=== PATIENT | female | born 1935 | race Caucasian/White ===

== ENCOUNTER 2020-07-16 15:13 | Emergency (ER) | payer MEDICARE, SELFPAY ==
[2020-07-16 15:40] VITALS: BP 140/80; BP 89/34; PULSE 62; PULSE 65; RESP 16; TEMP 36.7; O2SAT 89; O2SAT 95; BMI 40.1
[2020-07-16 15:52] VITALS: BP 109/45; PULSE 66
--- NOTE | 2020-07-16 17:12 | ECG_ITS ---
Test Reason : OVERDOSE Blood Pressure : / mmHG Vent. Rate : 080 BPM Atrial Rate : 080 BPM P-R Int : 174 ms QRS Dur : 064 ms QT Int : 376 ms P-R-T Axes : 002 -07 003 degrees QTc Int : 433 ms Normal sinus rhythm Normal ECG When compared with ECG of 22-NOV-2019 18:33, Premature atrial complexes are no longer Present Vent. rate has decreased BY 45 BPM Referred By: Dalton Munoz Electronically Signed By:FLORECITA TABARES MD
--- NOTE | 2020-07-16 17:13 | XR_ITS ---
EXAMINATION: XR CHEST CLINICAL INFORMATION: Overdose COMPARISON: None TECHNIQUE: Frontal view of the chest was obtained. FINDINGS: No significant abnormality is noted involving the heart, lungs, mediastinum, bony thorax or soft tissues. Bibasilar atelectasis is present. XR/XR chest 1V IMPRESSION: No acute intrathoracic disease.
[2020-07-16 18:13] VITALS: BP 127/55; PULSE 81; RESP 16; O2SAT 95
[2020-07-16 18:18] LABS: MANUAL DIFF FLAG NO
[2020-07-16 18:19] LABS: Basophils Percent Auto 0.5 % (0-2); Eosinophils Absolute Auto 0.1 X10*3/uL (0.0-0.4); Eosinophils Percent Auto 1.2 % (0-4); Hematocrit 26.6 % (37-47); Hemoglobin 7.7 g/dl (12.0-16.0); Imm Gran Abs Auto 0.02 X10*3/uL (0.00-0.03); Imm Gran Pct Auto 0.3 % (0.0-0.4); Lymphocytes Absolute Auto 1.1 X10*3/uL (1.2-4.9); Lymphocytes Percent Auto 14.6 % (20-40); Mean Corpuscular HGB Conc 28.9 g/dl (31.0-35.0); Mean Corpuscular Hemoglobin 23.8 pg (27.0-33.0); Mean Corpuscular Volume 82.1 fL (80-98); Mean Platelet Volume 10.3 fL (9.4-12.3); Monocytes Absolute Auto 0.4 X10*3/uL (0.1-1.2); Monocytes Percent Auto 5.4 % (2-11); Neutrophils Absolute Auto 5.9 X10*3/uL (2.0-8.3); Platelet Count 334 X10*3/uL (160-400); Red Blood Count 3.24 X10*6/uL (4.20-5.50); Red Cell Distribution Width 15.9 % (11.0-16.0); White Blood Count 7.6 X10*3/uL (4.8-10.8)
[2020-07-16 18:26] LABS: Prothrombin Time 12.2 SEC (10.8-13.0)
[2020-07-16 18:29] LABS: Partial Thromboplastin Time 28.4 SEC (24.1-38.0)
[2020-07-16 18:44] LABS: Ethanol < 10 mg/dL
[2020-07-16 18:46] LABS: Alanine Aminotransferase 14 U/L (0-31); Albumin Level 3.6 g/dL (3.5-5.0); Alkaline Phosphatase 56 U/L (39-117); Anion Gap 20 (12-20); Aspartate Amino Transferase 28 U/L (5-31); Bilirubin Total 0.4 mg/dL (0.0-1.0); Blood Urea Nitrogen 40 mg/dL (9-16); Calcium 8.7 mg/dL (8.4-10.2); Carbon Dioxide 20 mmol/L (22-29); Chloride 105 mmol/L (96-108); Estimated Glomerular Filt Rate 23; Glucose Random 153 mg/dL (60-115); Potassium 5.5 mmol/l (3.3-5.1); Sodium 139 mmol/L (135-145); Total Protein 6.8 g/dL (6.5-8.0)
[2020-07-16 18:54] LABS: Troponin-I High Sensitivity 8.4 ng/L (<3.5-17.0)
--- NOTE | 2020-07-16 19:07 | PC.NURSE ---
pt resting in stretcher in NAD. Pt alert, respirations easy, n/l. skin w/d. pt denies any complaints. pt awaiting for dispo.
--- NOTE | 2020-07-16 19:10 | PC.NURSE ---
pt requesting to go home.
--- NOTE | 2020-07-16 19:55 | ED.OVERDOSE ---
HPI - Overdose General Chief Complaint: Overdose Stated Complaint: AMS S/P DOUBLE INTAKE OF EDIBLES Time Seen by Provider: 07/16/20 17:12 Source: EMS Limitations: no limitations History of Present Illness HPI Narrative: This 20-year-old female with blood noted past medical history including history of chronic right shoulder pain, recurrent falls along with other history as noted below presents via EMS from home after she reportedly ingested to edible marijuana cookies and afterwards reportedly became unresponsive to the has been at home who called EMS and EMS found her to be responsive alert and oriented x3 but hypertensive. She upon arrival offers no complaints. States she feels fine and ingested the cookie to help with her chronic right shoulder pain which she told her friend about and suggested to the edible cookie. She otherwise denies any chest pain or shortness of breath. No fall. No head, neck, back, abdominal pain nausea vomiting or diarrhea. MD complaint: accidental overdose Timing confirmed by: spouse Intent: unwilling to say ( For shoulder pain) Associated symptoms: syncope (near ) Related Data Allergies Allergy/AdvReac Type Severity Reaction Status Date / Time zolpidem [Zolpidem] AdvReac Intermediate CONFUSION Verified 07/16/20 15:45 Review of Systems Review of Systems: Constitutional: No Weight loss, No Fever, No Chills, No Night Sweats, No Fatigue, No Malaise ENT/Mouth: No Hearing loss, No Ear Pain, No Nasal Congestion, No Sinus Pain, No Hoarseness, No sore throat, No Rhinorrhea, No Swallowing Difficulty Eyes: No Eye Pain, No Swelling, No Redness, No Foreign Body, No Discharge, No Vision Changes Cardiovascular: No Chest Pain, No SOB, No Dyspnea on Exertion, No Orthopnea, No Edema, No Palpitations Respiratory: No Cough, No Sputum, No Wheezing, No Smoke Exposure, No Dyspnea Gastrointestinal: No Nausea, No Vomiting, No Diarrhea, No Constipation, No abdominal Pain, No Hematochezia, No Melena Genitourinary: no irregular bleeding, No Dysuria, No Urinary Frequency, No Hematuria, No Urinary Incontinence, No Urgency, No Flank Pain, No Urinary Flow Changes, No Hesitancy Musculoskeletal: No joint pain, No Myalgias, No Joint Swelling Skin: No Skin Lesions, No rash Neuro: No Weakness, No Numbness, No Paresthesias, No Loss of Consciousness, No Dizziness, No Headache Psych: No Anxiety/Panic, No Depression, No SI/HI/AH/VH, No Social Issues Heme/Lymph: No Bruising, No Bleeding,No Lymphadenopathy Endocrine: No Polyuria, No Polydipsia, No Temperature Intolerance Yes all other systems are reviewed and are negative PENDING SALE TO [facility] Past Medical History Attestation statement: The following information was validated with the patient. Medical History Diabetes High cholesterol HTN (hypertension) Hypothyroid Social History Social History Smoking Status: Never smoker Use of substances other than those prescribed or required for medical reasons: No Advance Directives: No Advance Directives Information Provided: No Physical Exam Vital Signs: Vital Signs: Vital Signs Temp Pulse Resp BP Pulse Ox 07/16/20 18:13 81 16 127/55 L 95 07/16/20 15:52 66 109/45 L 07/16/20 15:40 98.0 F 65 16 89/34 L 95 Body Mass Index 40.1 Reviewed Const: General: cooperative and healthy appearing; No acute distress or intoxicated appearing Nutritional Appearance: average body habitus Orientation/consciousness: oriented to person, oriented to place and oriented to time HENMT: Head: Yes normal to inspection Ears: hearing grossly normal bilaterally Eyes: General: appearance normal, both eyes and all related structures Visual Gonzalez: normal visual gonzalez by confrontation Neck: Neck: Yes normal visual inspection, No positive Brudzinski's sign, No positive Kernig's sign and No tender Thyroid: Thyroid normal Chest: Chest palpation & inspection: normal inspection of the chest Resp: Effort & Inspection: normal respiratory effort Cardio: Jugular venous distension: no JVD GI: Inspection: Yes normal to inspection Percussion: Yes normal to percussion Auscultation: normal bowel sounds : General: Yes no CVA tenderness Back/Spine/Pelvis: Back: no CVA tenderness Skin: General skin exam: no rashes or lesions noted Neuro: General: oriented to person, oriented to place, oriented to time, gait normal, moves all extremities and Normal light touch and pain sensation Cranial nerves: Yes CN's II-XII intact bilaterally Cognition (Neuro): normal cognition Gait exam (Neuro): Normal gait present Motor exam (neuro): 5/5 motor strength present throughout Sensory Exam: Normal double simultaneous stimulation for sensation Coordination: [id number] test normal Extrem: General: Yes normal to inspection Course Course Course Narrative: Throughout her care she has been very resistant initially requiring some convincing given her comorbidities to have labs done after having near syncopal episode an 84-year-old female. She is alert and oriented x3 does not seem intoxicated she has hemodynamically remained stable. Workup shows significant anemia compared to prior as well as AYE we did get some IV fluids here recommendation for further investigation into the anemia and admission for AYE however she does not want this. I did talk to her daughter Shellie who states that mother cannot be convinced and she will help her follow-up with her primary care doctor. She will be signed out against medical advice for admission for further evaluation and treatment. Risks of signing out AMA reviewed welcome to return. MDM - Overdose MDM Narrative Medical decision making narrative: in review 84-year-old female with above history presenting with near syncopal episode after ingesting edible marijuana cookie. She on arrival offers no medical complaints. Did have hypertension per EMS normotensive upon arrival. She offers no complaints. Given her age and comorbidities will go ahead and initiate medical workup including cardiac enzymes EKG chest x-ray and labs. Initially resistant but now agreeable to labs. She does live at home with her she does use walker/cane sometimes and she reports she takes care of her and daughter lives close by. Lab Data Result diagrams: 07/16/20 18:11 07/16/20 18:11 Labs: Lab Results 07/16/20 07/16/20 07/16/20 Range/Units 18:11 18:11 18:11 WBC 7.6 (4.8-10.8) X10*3/uL RBC 3.24 L (4.20-5.50) X10*6/uL Hgb 7.7 L (12.0-16.0) g/dl Hct 26.6 L (37-47) % MCV 82.1 (80-98) fL MCH 23.8 L (27.0-33.0) pg MCHC 28.9 L (31.0-35.0) g/dl RDW 15.9 (11.0-16.0) % Plt Count 334 (160-400) X10*3/uL MPV 10.3 (9.4-12.3) fL Immature Gran % (Auto) 0.3 (0.0-0.4) % Neut % (Auto) 78.0 H (45-73) % Lymph % (Auto) 14.6 L (20-40) % [place] % (Auto) 5.4 (2-11) % Eos % (Auto) 1.2 (0-4) % Baso % (Auto) 0.5 (0-2) % Lymph # (Auto) 1.1 L (1.2-4.9) X10*3/uL [place] # (Auto) 0.4 (0.1-1.2) X10*3/uL Eos # (Auto) 0.1 (0.0-0.4) X10*3/uL Baso # (Auto) 0.0 (0.0-0.2) X10*3/uL Abs Immat Gran (auto) 0.02 (0.00-0.03) X10*3/uL Absolute Neuts (auto) 5.9 (2.0-8.3) X10*3/uL Absolute Nucleated RBC 0.000 (0.0-0.012) X10*3/uL Nucleated RBC % (auto) 0.0 (0.0-0.2) /100WBC PT 12.2 (10.8-13.0) SEC INR 1.0 (0.9-1.1) APTT 28.4 (24.1-38.0) SEC Sodium 139 (135-145) mmol/L Potassium 5.5 H (3.3-5.1) mmol/l Chloride 105 (96-108) mmol/L Carbon Dioxide 20 L (22-29) mmol/L Anion Gap 20 (12-20) BUN 40 H (9-16) mg/dL Creatinine 2.04 H (0.5-1.4) mg/dL Estim Creat Clear Calc 27.0 Estimated GFR 23 Random Glucose 153 H (60-115) mg/dL Calcium 8.7 (8.4-10.2) mg/dL Total Bilirubin 0.4 (0.0-1.0) mg/dL AST 28 (5-31) U/L ALT 14 (0-31) U/L Alkaline Phosphatase 56 (39-117) U/L Troponin I High Sens (<3.5-17.0) ng/L Total Protein 6.8 (6.5-8.0) g/dL Albumin 3.6 (3.5-5.0) g/dL Ethyl Alcohol mg/dL 07/16/20 07/16/20 Range/Units 18:11 18:11 WBC (4.8-10.8) X10*3/uL RBC (4.20-5.50) X10*6/uL Hgb (12.0-16.0) g/dl Hct (37-47) % MCV (80-98) fL MCH (27.0-33.0) pg MCHC (31.0-35.0) g/dl RDW (11.0-16.0) % Plt Count (160-400) X10*3/uL MPV (9.4-12.3) fL Immature Gran % (Auto) (0.0-0.4) % Neut % (Auto) (45-73) % Lymph % (Auto) (20-40) % [place] % (Auto) (2-11) % Eos % (Auto) (0-4) % Baso % (Auto) (0-2) % Lymph # (Auto) (1.2-4.9) X10*3/uL [place] # (Auto) (0.1-1.2) X10*3/uL Eos # (Auto) (0.0-0.4) X10*3/uL Baso # (Auto) (0.0-0.2) X10*3/uL Abs Immat Gran (auto) (0.00-0.03) X10*3/uL Absolute Neuts (auto) (2.0-8.3) X10*3/uL Absolute Nucleated RBC (0.0-0.012) X10*3/uL Nucleated RBC % (auto) (0.0-0.2) /100WBC PT (10.8-13.0) SEC INR (0.9-1.1) APTT (24.1-38.0) SEC Sodium (135-145) mmol/L Potassium (3.3-5.1) mmol/l Chloride (96-108) mmol/L Carbon Dioxide (22-29) mmol/L Anion Gap (12-20) BUN (9-16) mg/dL Creatinine (0.5-1.4) mg/dL Estim Creat Clear Calc Estimated GFR Random Glucose (60-115) mg/dL Calcium (8.4-10.2) mg/dL Total Bilirubin (0.0-1.0) mg/dL AST (5-31) U/L ALT (0-31) U/L Alkaline Phosphatase (39-117) U/L Troponin I High Sens 8.4 (<3.5-17.0) ng/L Total Protein (6.5-8.0) g/dL Albumin (3.5-5.0) g/dL Ethyl Alcohol < 10 mg/dL Discharge Plan Discharge Clinical Impression: AYE (acute kidney injury), Anemia Drug overdose Qualifiers: Encounter type: initial encounter Injury intent: accidental or unintentional Qualified Code(s): T50.901A - Poisoning by unspecified drugs, medicaments and biological substances, accidental (unintentional), initial encounter Patient Disposition: Home, Self-Care Instructions: Dehydration (ED), Acute Kidney Injury (DC), Anemia (ED) Referrals: Jas Rangel PA-C [Primary Care Provider] - 1 day Stand Alone Forms: Against Medical Advice Interventions: ED Discharge Assessment Last Done: 07/16/20 20:46 Discharge Date/Time: 07/16/20 20:49
--- NOTE | 2020-07-16 19:59 | PC.NURSE ---
PA IN ROOM FOR RE-EVAL. PT REQUESTING TO GO HOME PT STATES YOU HAVE IGNORED ME ALL DAY AND JUST LEFT ME HERE, I NEED TO GO HOME MY IS DIABETIC PT APPEARS ANXIOUS AND STATES I CANT STAY PA REQUESTING OBS AND PT REFUSING OBS AND STATES I KNOW IM ANEMIC AND DEHYDRATED AND I WILL EAT AND DRINK WHEN I GET HOME . PT REMAINS ALERT, RESPIRATIONS EASY, N/L. PT GIVEN PHONE TO CALL DAUGHTERSARAH [phone].
== END 2020-07-16 20:49 | disposition home or self-care (01) ==
PROVIDERS: Nurse Practitioner Primary Care; Emergency Provider Internal Medicine; PCP Physician Assistant
DX: T40.7X1A Poisoning by cannabis (derivatives), accidental (unintentional), initial encounter (principal); Y92.009 Unspecified place in unspecified non-institutional (private) residence as the place of occurrence of the external cause; N17.9 Acute kidney failure, unspecified; Z79.899 Other long term (current) drug therapy
CPT/HCPCS: 36415; 71045; 80053; 80320; 84484; 85025; 85610; 85730; 93005; 96374; 99284; 99285; J2405

== ENCOUNTER 2020-09-15 14:51 | Outpatient (REF) | payer MEDICARE, SELFPAY ==
--- NOTE | 2020-09-15 15:01 | XR_ITS ---
EXAMINATION: XR CERVICAL SPINE CLINICAL INFORMATION: Neck pain, evaluate for degenerative changes. COMPARISON: None TECHNIQUE: 6 views of the cervical spine, inclusive of flexion and extension views, were obtained. Positioning in the lateral projection is limited. The C6 and C7 vertebral bodies are incompletely visualized. FINDINGS: Mild cervicothoracic levoscoliosis is seen with apex at T1-T2. There is normal cervical lordosis and spinal alignment. Generalized osteopenia is seen. Mild to moderate multilevel degenerative disc disease and bilateral facet arthropathy seen most pronounced from C4-C5 to C6-C7. The vertebral bodies are intact. Mild bilateral neural foraminal narrowing is seen at C4-C5 and C5-C6. The prevertebral soft tissues are unremarkable. XR/XR cervical spine min 6V IMPRESSION: 1. Mild cervicothoracic levoscoliosis. 2. Mild to moderate multilevel degenerative changes including mild bilateral neural foraminal narrowing as detailed above.
== END 2020-09-15 14:52 | disposition home or self-care (01) ==
LOC: HO.XRAY 14:51
PROVIDERS: PCP Physician Assistant; Visit Provider Physical Medicine & Rehabilitation
DX: M54.2 Cervicalgia (principal)
CPT/HCPCS: 72052

== ENCOUNTER 2020-09-25 10:46 | Outpatient (REF) | payer MEDICARE, SELFPAY ==
[2020-09-25 13:53] LABS: MANUAL DIFF FLAG NO
[2020-09-25 14:02] LABS: Basophils Percent Auto 0.4 % (0-2); Eosinophils Absolute Auto 0.2 X10*3/uL (0.0-0.4); Eosinophils Percent Auto 2.8 % (0-4); Hemoglobin 8.7 g/dl (12.0-16.0); Imm Gran Abs Auto 0.02 X10*3/uL (0.00-0.03); Imm Gran Pct Auto 0.3 % (0.0-0.4); Lymphocytes Absolute Auto 1.3 X10*3/uL (1.2-4.9); Lymphocytes Percent Auto 16.6 % (20-40); Mean Corpuscular Hemoglobin 25.9 pg (27.0-33.0); Mean Corpuscular Volume 89.3 fL (80-98); Mean Platelet Volume 11.3 fL (9.4-12.3); Monocytes Absolute Auto 0.6 X10*3/uL (0.1-1.2); Monocytes Percent Auto 7.5 % (2-11); NRBC Pct Auto 0.3 /100WBC (0.0-0.2); Neutrophils Absolute Auto 5.7 X10*3/uL (2.0-8.3); Neutrophils Percent Auto 72.4 % (45-73); Platelet Count 314 X10*3/uL (160-400); Red Blood Count 3.36 X10*6/uL (4.20-5.50); Red Cell Distribution Width 18.9 % (11.0-16.0); White Blood Count 7.9 X10*3/uL (4.8-10.8)
[2020-09-25 14:19] LABS: Iron 21 mcg/dL (30-160); Percent Iron Saturation 6 % (15-50); Total Iron Binding Capacity 364 mcg/dL (228-428); Unsaturated Iron Binding 343 ug/dL
[2020-09-25 14:27] LABS: Alanine Aminotransferase 17 U/L (0-31); Albumin Level 3.8 g/dL (3.5-5.0); Alkaline Phosphatase 73 U/L (39-117); Anion Gap 16 (12-20); Aspartate Amino Transferase 19 U/L (5-31); Bilirubin Total 0.3 mg/dL (0.0-1.0); Blood Urea Nitrogen 30 mg/dL (9-16); Calcium 9.5 mg/dL (8.4-10.2); Carbon Dioxide 25 mmol/L (22-29); Chloride 106 mmol/L (96-108); Cholesterol 149 mg/dL; Estimated Glomerular Filt Rate 41; Glucose Fasting 127 mg/dL (60-99); HDL Cholesterol 43 mg/dL; LDL Cholesterol Calculated 81 mg/dl; Potassium 4.4 mmol/l (3.3-5.1); Sodium 143 mmol/L (135-145); Total Protein 6.8 g/dL (6.5-8.0); Triglycerides 126 mg/dL
[2020-09-25 14:39] LABS: Ferritin 8 ng/mL (10-250)
[2020-09-25 14:44] LABS: Estimated Average Glucose 117 mg/dL; Hemoglobin A1c % 5.7 %
[2020-09-25 14:49] LABS: Thyroid Stimulating Hormone 2.91 uIU/mL (0.32-4.0)
== END 2020-09-25 10:47 | disposition home or self-care (01) ==
LOC: HO.10HDL 10:46
PROVIDERS: Visit Provider Physician Assistant
DX: D64.9 Anemia, unspecified (principal); E11.9 Type 2 diabetes mellitus without complications; I10 Essential (primary) hypertension; E03.9 Hypothyroidism, unspecified; E78.00 Pure hypercholesterolemia, unspecified
CPT/HCPCS: 36415; 80053; 80061; 82728; 83036; 83540; 84443; 85025

== ENCOUNTER → 2020-10-13 12:58 | Outpatient (BNVA) | payer MEDICARE, SELFPAY | PROVIDERS: PCP Physician Assistant; Visit Provider Orthopaedic Surgery | DX: M17.12 Unilateral primary osteoarthritis, left knee (principal) | CPT/HCPCS: 20610; 99212; J1040 ==

== ENCOUNTER → 2020-10-19 10:30 | Outpatient (BNVA) | payer MEDICARE, SELFPAY | PROVIDERS: PCP Physician Assistant; Visit Provider Anesthesiology | DX: B02.29 Other postherpetic nervous system involvement (principal) | CPT/HCPCS: 99202 ==

== ENCOUNTER → 2021-01-13 12:20 | Outpatient (BNVA) | payer MEDICARE, SELFPAY | PROVIDERS: PCP Physician Assistant; Visit Provider Orthopaedic Surgery | DX: M17.12 Unilateral primary osteoarthritis, left knee (principal) | CPT/HCPCS: 20610; 99212; J1040 ==

== ENCOUNTER 2021-02-09 09:19 | Outpatient (REF) | payer MEDICARE, SELFPAY ==
[2021-02-09 10:35] LABS: Hemoglobin 12.4 g/dl (12.0-16.0); Mean Corpuscular HGB Conc 31.8 g/dl (31.0-35.0); Mean Corpuscular Hemoglobin 28.6 pg (27.0-33.0); Mean Corpuscular Volume 90.1 fL (80-98); Mean Platelet Volume 10.8 fL (9.4-12.3); Platelet Count 229 X10*3/uL (160-400); Red Blood Count 4.33 X10*6/uL (4.20-5.50); Red Cell Distribution Width 15.9 % (11.0-16.0); White Blood Count 6.9 X10*3/uL (4.8-10.8)
[2021-02-09 10:52] LABS: Alanine Aminotransferase 13 U/L (0-31); Albumin Level 3.9 g/dL (3.5-5.0); Alkaline Phosphatase 66 U/L (39-117); Anion Gap 14 (12-20); Aspartate Amino Transferase 15 U/L (5-31); Bilirubin Total 0.8 mg/dL (0.0-1.0); Blood Urea Nitrogen 28 mg/dL (9-16); Calcium 9.9 mg/dL (8.4-10.2); Carbon Dioxide 24 mmol/L (22-29); Chloride 105 mmol/L (96-108); Cholesterol 151 mg/dL; Estimated Glomerular Filt Rate 40; Glucose Fasting 141 mg/dL (60-99); HDL Cholesterol 49 mg/dL; Iron 68 mcg/dL (30-160); LDL Cholesterol Calculated 79 mg/dl; Percent Iron Saturation 22 % (15-50); Potassium 4.3 mmol/L (3.3-5.1); Sodium 139 mmol/L (135-145); Total Iron Binding Capacity 305 mcg/dL (228-428); Total Protein 6.6 g/dL (6.5-8.0); Triglycerides 115 mg/dL; Unsaturated Iron Binding 237 ug/dL
== END 2021-02-09 09:20 | disposition home or self-care (01) ==
LOC: HO.10HDL 09:19
PROVIDERS: Visit Provider Physician Assistant
DX: D50.9 Iron deficiency anemia, unspecified (principal); I10 Essential (primary) hypertension
CPT/HCPCS: 36415; 80053; 80061; 83540; 85027

== ENCOUNTER → 2021-05-14 08:51 | Outpatient (BNVA) | payer MEDICARE, SELFPAY | PROVIDERS: PCP Physician Assistant; Visit Provider Orthopaedic Surgery | DX: M17.12 Unilateral primary osteoarthritis, left knee (principal); E11.9 Type 2 diabetes mellitus without complications; E78.00 Pure hypercholesterolemia, unspecified; I10 Essential (primary) hypertension; E03.9 Hypothyroidism, unspecified; Z87.891 Personal history of nicotine dependence; Z88.8 Allergy status to other drugs, medicaments and biological substances | CPT/HCPCS: 99212 ==

== ENCOUNTER → 2021-05-31 08:21 | Outpatient (BNVA) | payer MEDICARE, SELFPAY | PROVIDERS: PCP Physician Assistant; Visit Provider Physician Assistant | DX: M17.12 Unilateral primary osteoarthritis, left knee (principal) | CPT/HCPCS: 20610 ==

== ENCOUNTER → 2021-11-26 09:40 | Outpatient (BNVA) | payer MEDICARE, SELFPAY | PROVIDERS: PCP Physician Assistant; Visit Provider Physician Assistant | DX: M17.12 Unilateral primary osteoarthritis, left knee (principal) | CPT/HCPCS: 20610; J7326 ==

== ENCOUNTER 2022-02-10 08:49 | Outpatient (REF) | payer MEDICARE, SELFPAY ==
[2022-02-10 09:22] LABS: Hematocrit 39.2 % (37.0-47.0); Hemoglobin 12.4 g/dl (12.0-16.0); Mean Corpuscular HGB Conc 31.6 g/dl (31.0-35.0); Mean Corpuscular Hemoglobin 30.2 pg (27.0-33.0); Mean Corpuscular Volume 95.6 fL (80.0-98.0); Platelet Count 235 X10*3/uL (160-400); Red Cell Distribution Width 13.7 % (11.0-16.0); White Blood Count 6.4 X10*3/uL (4.8-10.8)
[2022-02-10 09:56] LABS: Alanine Aminotransferase 10 U/L (0-31); Alkaline Phosphatase 59 U/L (39-117); Anion Gap 14 (12-20); Aspartate Amino Transferase 14 U/L (5-31); Bilirubin Total 0.5 mg/dL (0.0-1.0); Blood Urea Nitrogen 40 mg/dL (9-16); Calcium 10.5 mg/dL (8.4-10.2); Carbon Dioxide 23 mmol/L (22-29); Chloride 109 mmol/L (96-108); Estimated Glomerular Filt Rate 32; Glucose Fasting 98 mg/dL (60-99); Iron 79 mcg/dL (30-160); Percent Iron Saturation 24 % (15-50); Potassium 4.8 mmol/L (3.3-5.1); Sodium 141 mmol/L (135-145); Total Iron Binding Capacity 327 mcg/dL (228-428); Unsaturated Iron Binding 248 ug/dL
[2022-02-10 10:18] LABS: TSH reflex Free T4 1.37 uIU/mL (0.32-4.0)
[2022-02-10 10:38] LABS: Creatinine Urine 89.22 mg/dL; Microalbum/Creatinine Ratio Ur 11.2 ug/mg cr
== END 2022-02-10 08:50 | disposition home or self-care (01) ==
LOC: HO.LAB 08:49
PROVIDERS: PCP Physician Assistant; Visit Provider Physician Assistant
DX: E11.9 Type 2 diabetes mellitus without complications (principal); I10 Essential (primary) hypertension; D50.9 Iron deficiency anemia, unspecified; E03.9 Hypothyroidism, unspecified
CPT/HCPCS: 36415; 80053; 82043; 83540; 84443; 85027

== ENCOUNTER → 2022-04-11 08:25 | Outpatient (BNVA) | payer MEDICARE, SELFPAY | PROVIDERS: PCP Physician Assistant; Visit Provider Physician Assistant | DX: M17.12 Unilateral primary osteoarthritis, left knee (principal) | CPT/HCPCS: 20610; 99212; J1020 ==

== ENCOUNTER → 2022-06-10 14:07 | Outpatient (BNVA) | payer MEDICARE, SELFPAY | PROVIDERS: PCP Physician Assistant; Visit Provider Physician Assistant | DX: M17.12 Unilateral primary osteoarthritis, left knee (principal) | CPT/HCPCS: 20610; J7326 ==

== ENCOUNTER → 2022-08-26 13:10 | Outpatient (BNVA) | payer MEDICARE, SELFPAY | PROVIDERS: PCP Physician Assistant; Visit Provider Physician Assistant | DX: M17.12 Unilateral primary osteoarthritis, left knee (principal) | CPT/HCPCS: 20610; 99212; J1040 ==

== ENCOUNTER → 2022-11-24 12:21 | Outpatient (BNVA) | payer MEDICARE, SELFPAY | PROVIDERS: PCP Physician Assistant; Visit Provider Physician Assistant | DX: M17.12 Unilateral primary osteoarthritis, left knee (principal) | CPT/HCPCS: 20610; 99212; J1040 ==

== ENCOUNTER 2023-02-22 08:15 | Outpatient (REF) | payer MEDICARE, SELFPAY ==
--- NOTE | ~2023-02-22 | XR_ITS ---
EXAMINATION: XR KNEE, LEFT CLINICAL INFORMATION: Pain in left knee COMPARISON: Same day AP knees standing TECHNIQUE: Lateral and sunrise views of the left knee. FINDINGS: Right knee: There is a total knee replacement. There is no fracture or evidence of loosening. The prosthesis appears in satisfactory appearance. Left knee: There is severe narrowing of all 3 joint compartments of the knee joint with marginal osteophyte formation with [id number] appearance of the medial joint compartment. There is no fracture. There is a small joint effusion. Vascular calcification is noted. XR/XR knee LT 2V IMPRESSION: 1. Total knee replacement without evidence of hardware complication of the right knee. 2. Severe osteoarthritis of the left knee.
--- NOTE | ~2023-02-22 | XR_ITS ---
EXAMINATION: XR KNEE AP STANDING CLINICAL INFORMATION: Pain in right knee COMPARISON: 2 views of the left knee same-day TECHNIQUE: AP standing view of both knees FINDINGS: Right knee: There is a total knee replacement. There is no fracture or evidence of loosening. The prosthesis appears in satisfactory appearance. Left knee: There is severe narrowing of all 3 joint compartments of the knee joint with marginal osteophyte formation with [id number] appearance of the medial joint compartment. There is no fracture. There is a small joint effusion. Vascular calcification is noted. XR/XR knee standing BI IMPRESSION: 1. Total knee replacement without evidence of hardware complication of the right knee. 2. Severe osteoarthritis of the left knee.
== END 2023-02-22 08:16 | disposition home or self-care (01) ==
LOC: HO.HOSX 08:15
PROVIDERS: Visit Provider Physician Assistant
DX: M17.12 Unilateral primary osteoarthritis, left knee (principal)
CPT/HCPCS: 20610; 73560; 73565; 99212; J1040

== ENCOUNTER 2023-04-10 09:17 | Outpatient (AMB) | payer MEDICARE, SELFPAY ==
--- NOTE | 2023-04-10 09:29 | A.OFFVIS_ITS ---
Intake Intake Visit Reasons: Discuss LT TKA Intake Note: Julia is an 89 year old female who presents today to discuss Left TKA. Seema has tried and failed multiple cortisone injections, viscosupplementation, OTC NSAIDS, home therapy and therapy. The most recent gel injection was helpful and has allowed her to walk better. Booked for Left TKA 05/30/23 has further questions' Allergies gabapentin Adverse Reaction (Intermediate, Verified 04/10/23 09:31) Confusion zolpidem [Zolpidem] Adverse Reaction (Intermediate, Verified 04/10/23 09:31) CONFUSION HPI Discuss LT TKA HPI Details Julia is an 87 year old Diabetic woman who presents with left knee OA, here to discuss TKA surgery. She is scheduled for surgery on 05/30/23, and says she has some more questions. She is accompanied by her daughter today. She has failed other conservative treatment options, though says her most recent injection has let her walk more easily with less pain. Her last steroid injection was on 02/22/23, and her recent viscosupplementation was done on 05/21/22, which she says gave her no relief. She complains of pain with daily activity, worse with walking or using stairs. She uses a walker to assist her, and a chairlift to go up and down stairs. She cares for her at home who is an amputee & is blind. Her daughter is worried Julia is a poor surgical candidate, as she is mostly homebound and does not seem particularly motivated to remain active around the house, despite her knee pain improving with motion. She has a Hx of a right TKA performed in ~[address] Don. She says she has no issues in regards to her right knee. [facility] Medical History Diabetes High cholesterol HTN (hypertension) Hypothyroid Post herpetic neuralgia Surgical History History of bladder surgery History of lumbar surgery History of total right knee replacement Family History Father Throat cancer Mother Diabetes Son Substance use disorder Son Substance use disorder Social History Housing: House Alcohol intake: never Patient Tobacco Use Status: Former Tobacco user e-Cigarette/Vaping Use: Never Used Second Hand Smoke Exposure: No service: No Current occupational status: retired Cognitive needs: Yes (walker) Hearing needs: No Vision needs: Yes (readig glasses) Review of Systems Const All systems reviewed & are unremarkable except as noted in HPI and below Physical Exam Const General: no acute distress, alert and awake Orientation/consciousness: patient oriented x3 HEENT Head: Yes normocephalic and Yes atraumatic Eyes EOM: EOMs intact bilaterally Resp Effort & Inspection: normal respiratory effort and able to speak in complete sentences Cardio Jugular venous distension: no JVD Skin General skin exam: turgor normal Rashes: no rashes Neuro General: patient oriented x3 Extrem Other: Left Knee: Varus knee 10-120 degrees ROM TTP medial compartment Psych Appearance: grossly normal Affect: normal affect Attitude: cooperative Results Reviewed Results Reviewed: I personally reviewed relevant radiographs. 1.? Total knee replacement without evidence of hardware complication of the right knee. 2.? Severe osteoarthritis of the left knee. Assessment & Plan Assessment & Plan (1) Osteoarthritis of left knee: Code(s): M17.12 - Unilateral primary osteoarthritis, left knee Plan: This is an 87 year old woman with severe left knee OA. She has pain with daily activity, worse with ambulation, and is unable to use stairs. She ambulates with an assistive walker, and uses a chairlift at home. She has a hx of limited relief from injections & NSAIDs in the past. She is not particularly active at home does not feel her QOL is diminished. I discussed her diagnosis and treatment options. Given her level of motivation & desired function, she is not a good surgical candidate at this time. I recommend she try to remain as active as tolerated, and we continue with repeat steroid injections going forward. She can follow up prn. (2) DMII (diabetes mellitus, type 2): Code(s): E11.9 - Type 2 diabetes mellitus without complications Qualifiers: Diabetes mellitus complication status: without complication Diabetes mellitus mcfp insulin use: without optical fabrication technician use Qualified Code(s): E11.9 - Type 2 diabetes mellitus without complications Plan: Her most recent HgA1c was 6.4% on 01/26/23 Plan Scribed for Yg Zepeda MD by Jose Weiss, diploma medical assistant, on 04/10/23 at 9:50 AM, EST. Coding Level of Care Code Est Pt Level 4 (81144) Diagnoses Osteoarthritis of left knee M17.12 DMII (diabetes mellitus, type 2) E11.9 Diabetes mellitus complication status: without complication Diabetes mellitus optical fabrication technician insulin use: without optical fabrication technician use
== END 2023-04-10 11:54 | disposition home or self-care (01) ==
PROVIDERS: PCP Nurse Practitioner Family; Visit Provider Orthopaedic Surgery
DX: M17.12 Unilateral primary osteoarthritis, left knee (principal)
CPT/HCPCS: 99214

== ENCOUNTER → 2023-04-10 09:17 | Outpatient (BNVA) | payer MEDICARE, SELFPAY | PROVIDERS: PCP Nurse Practitioner Family; Visit Provider Orthopaedic Surgery | DX: M17.12 Unilateral primary osteoarthritis, left knee (principal); E11.9 Type 2 diabetes mellitus without complications | CPT/HCPCS: 99212 ==

== ENCOUNTER 2023-05-29 08:15 | Outpatient (AMB) | payer MEDICARE, SELFPAY ==
--- NOTE | 2023-05-29 08:25 | A.OFFVIS_ITS ---
Intake Vital Signs 05/29/23 08:27 Height 5 ft 3 in Weight 216 lb BMI 38.3 Intake Visit Reasons: OV-Left knee injection-Last injection 02/22/23 Intake Note: Julia is an 87 year old female who presents today for a follow up of her left knee, Last injection done 02/24/23. Patient reports last injection provided her relief, her pain returned last week. Allergies gabapentin Adverse Reaction (Intermediate, Verified 05/29/23 08:28) Confusion zolpidem [Zolpidem] Adverse Reaction (Intermediate, Verified 05/29/23 08:28) CONFUSION HPI OV-Left knee injection-Last injection 02/22/23 HPI Details 87-year-old female who returns to the [facility] today for a follow-up of left knee pain. She had her last injection on 02/22/23 which provided her relief until last week. [facility] Medical History Diabetes High cholesterol HTN (hypertension) Hypothyroid Post herpetic neuralgia Surgical History History of lumbar surgery History of total right knee replacement History of bladder surgery Family History Father Throat cancer Mother Diabetes Son Substance use disorder Son Substance use disorder Social History Housing: House Alcohol intake: never Patient Tobacco Use Status: Former Tobacco user e-Cigarette/Vaping Use: Never Used Second Hand Smoke Exposure: No service: No Current occupational status: retired Cognitive needs: Yes (walker) Hearing needs: No Vision needs: Yes (readig glasses) Review of Systems Const All systems reviewed & are unremarkable except as noted in HPI and below Physical Exam Vital Signs: BMI result Body Mass Index 38.3 Extrem Other: Left knee skin intact, no erythema or joint effusion. Tenderness along the medial and lateral joint line. Full ROM with crepitus. Negative Eliza?s. No ligamentous laxity. NVI. Office Procedures Joint Injection/Drain Joint Injection/Drain Primary Site: left knee Prep: site was prepped using aseptic technique, ethochloride spray was applied and injection warnings given Injected: 80 mg of, DepoMedrol, with 8 mL of, 1% plain lidocaine and in the joint Approach Used: anterolateral Procedure: The patient tolerated the procedure well and there was some relief with the local anesthesia Coding 60182 - Glenohumeral/Tronchanteric Bursa/Intraarticular Procedure code (CPT) selection complete Results Reviewed Results Reviewed: 05/29/23 08:40 Lidocaine HCl 2 % MPF [Xylocaine 2 % MPF] 5 ml .ROUTE .STK-MED ONE methylPREDNISolone acetate [DEPO-MedroL] 80 mg .ROUTE .STK-MED ONE Assessment & Plan Assessment & Plan (1) Osteoarthritis of left knee: Code(s): M17.12 - Unilateral primary osteoarthritis, left knee Qualifiers: Osteoarthritis type: primary Qualified Code(s): M17.12 - Unilateral primary osteoarthritis, left knee Plan We discussed options today which include steroid injection. They did consent to move forward with the left knee injection, which was tolerated well. I recommended rest, ice and elevation and OTC anti-inflammatories PRN for discomfort. If symptoms persist or worsens over the next 6-8 weeks, patient will contact the office, otherwise follow-up as needed. Patient Instructions: Scribed for Susy Hay PA-C, by Timothy Daniels medical appointment scheduler, on 05/29/2023 at 8:45 AM YONI. Susy Rodriguez PA-C, have personally reviewed and agree with the information entered by the scribe. Coding Level of Care Code Est Pt Level 3 (88515) Diagnoses Primary osteoarthritis of left knee M17.12 Osteoarthritis type: primary CPT Codes Coding - Joint 7: 92250 - Glenohumeral/Tronchanteric Bursa/Intraarticular ([id number])
[2023-05-29 08:27] VITALS: BMI 38.3
== END 2023-05-29 09:12 | disposition home or self-care (01) ==
PROVIDERS: PCP Nurse Practitioner Family; Visit Provider Physician Assistant
DX: M17.12 Unilateral primary osteoarthritis, left knee (principal)
CPT/HCPCS: 20610; 99213

== ENCOUNTER → 2023-05-29 08:15 | Outpatient (BNVA) | payer MEDICARE, SELFPAY | PROVIDERS: PCP Nurse Practitioner Family; Visit Provider Physician Assistant | DX: M17.12 Unilateral primary osteoarthritis, left knee (principal) | CPT/HCPCS: 20610; 99212; J1040 ==

== ENCOUNTER 2023-09-04 08:33 | Outpatient (AMB) | payer MEDICARE, SELFPAY ==
--- NOTE | 2023-09-04 08:35 | MHC.OFFVIS ---
Intake Intake Visit Reasons: OV-Left knee injection- last injection 05/29/23 Intake Note: Julia an 87 year old female presents today for a follow up of left knee, last injection 05/29/23. Patient reports her last injection didn't last her as much as her first injection. Allergies gabapentin Adverse Reaction (Intermediate, Verified 09/04/23 08:38) Confusion zolpidem [Zolpidem] Adverse Reaction (Intermediate, Verified 09/04/23 08:38) CONFUSION HPI OV-Left knee injection- last injection 05/29/23 HPI Details 88-year-old female who returns to the office today for a follow-up of left knee pain. She had her last injection on 05/29/23 which she states was not as effective as her first injection. [facility] Medical History Diabetes High cholesterol HTN (hypertension) Hypothyroid Post herpetic neuralgia Surgical History History of lumbar surgery History of total right knee replacement History of bladder surgery Family History Father Throat cancer Mother Diabetes Son Substance use disorder Son Substance use disorder Social History Housing: House Alcohol intake: never Patient Tobacco Use Status: Former Tobacco user e-Cigarette/Vaping Use: Never Used Second Hand Smoke Exposure: No service: No Current occupational status: retired Cognitive needs: Yes (walker) Hearing needs: No Vision needs: Yes (readig glasses) Review of Systems Const All systems reviewed & are unremarkable except as noted in HPI and below Physical Exam Extrem Other: Left knee skin intact, no erythema or joint effusion. Tenderness along the medial and lateral joint line. Full ROM with crepitus. Negative Eliza?s. No ligamentous laxity. NVI. Office Procedures Joint Injection/Drain Joint Injection/Drain Primary Site: left knee Prep: site was prepped using aseptic technique, ethochloride spray was applied and injection warnings given Injected: 80 mg of, DepoMedrol, with 8 mL of, 1% plain lidocaine and in the joint Approach Used: anterolateral Procedure: The patient tolerated the procedure well and there was some relief with the local anesthesia Coding 96503 - Glenohumeral/Tronchanteric Bursa/Intraarticular Procedure code (CPT) selection complete Assessment & Plan Assessment & Plan (1) Osteoarthritis of left knee: Code(s): M17.12 - Unilateral primary osteoarthritis, left knee Qualifiers: Osteoarthritis type: primary Qualified Code(s): M17.12 - Unilateral primary osteoarthritis, left knee Plan We discussed options today which include steroid injection. They did consent to move forward with the left knee injection, which was tolerated well. I recommended rest, ice and elevation and OTC anti-inflammatories PRN for discomfort. If symptoms persist or worsens over the next 6-8 weeks, patient will contact the office, otherwise follow-up as needed. Patient Instructions: Scribed for Susy Hay PA-C, by Timothy Daniels medical staff assistant, on 09/04/2023 at 8:45 AM EST. I, Susy Hay PA-C, have personally reviewed and agree with the information entered by the scribe. Coding Level of Care Code Est Pt Level 3 (14556) Diagnoses Primary osteoarthritis of left knee M17.12 Osteoarthritis type: primary CPT Codes Coding - Joint 7: 04712 - Glenohumeral/Tronchanteric Bursa/Intraarticular ([id number])
== END 2023-09-04 08:54 | disposition home or self-care (01) ==
PROVIDERS: PCP Nurse Practitioner Family; Visit Provider Physician Assistant
DX: M17.12 Unilateral primary osteoarthritis, left knee (principal)
CPT/HCPCS: 20610

== ENCOUNTER → 2023-09-04 08:33 | Outpatient (BNVA) | payer MEDICARE, SELFPAY | PROVIDERS: PCP Nurse Practitioner Family; Visit Provider Physician Assistant | DX: M17.12 Unilateral primary osteoarthritis, left knee (principal) | CPT/HCPCS: 20610; J1020 ==

== ENCOUNTER 2023-12-04 08:36 | Outpatient (AMB) | payer MEDICARE, SELFPAY ==
--- NOTE | 2023-12-04 08:37 | A.OFFVIS_ITS ---
Intake Vital Signs 12/04/23 08:49 Height 5 ft 3 in Weight 216 lb BMI 38.3 Intake Visit Reasons: OV-Left knee injection- last injection 09/04/23 Intake Note: Julia an 88 year old female presents today for a follow up of left knee, last injection on 09/04/23. Patient reports that her last injection provided her with no relief at all. Allergies gabapentin Adverse Reaction (Intermediate, Verified 12/04/23 08:50) Confusion zolpidem [Zolpidem] Adverse Reaction (Intermediate, Verified 12/04/23 08:50) CONFUSION HPI OV-Left knee injection- last injection 09/04/23 HPI Details 88-year-[facility] pain. She had her last injection on 09/04/23 which provided her no relief at all. [facility] Medical History Diabetes High cholesterol HTN (hypertension) Hypothyroid Post herpetic neuralgia Surgical History History of lumbar surgery History of total right knee replacement History of bladder surgery Family History Father Throat cancer Mother Diabetes Son Substance use disorder Son Substance use disorder Social History Housing: House Alcohol intake: never Patient Tobacco Use Status: Former Tobacco user e-Cigarette/Vaping Use: Never Used Second Hand Smoke Exposure: No service: No Current occupational status: retired Cognitive needs: Yes (walker) Hearing needs: No Vision needs: Yes (readig glasses) Review of Systems Const All systems reviewed & are unremarkable except as noted in HPI and below Physical Exam Vital Signs: BMI result Body Mass Index 38.3 Extrem Other: Left knee skin intact, no erythema or joint effusion. Tenderness along the medial and lateral joint line. Full ROM with crepitus. Negative Eliza?s. No ligamentous laxity. NVI. Office Procedures Joint Injection/Drain Joint Injection/Drain Primary Site: left knee Prep: site was prepped using aseptic technique, ethochloride spray was applied and injection warnings given Injected: 80 mg of, DepoMedrol, with 8 mL of, 1% plain lidocaine and in the join t Approach Used: anterolateral Procedure: The patient tolerated the procedure well and there was some relief with the local anesthesia Coding 12907 - Glenohumeral/Tronchanteric Bursa/Intraarticular Procedure code (CPT) selection complete Assessment & Plan Assessment & Plan (1) Osteoarthritis of left knee: Code(s): M17.12 - Unilateral primary osteoarthritis, left knee Qualifiers: Osteoarthritis type: primary Qualified Code(s): M17.12 - Unilateral primary osteoarthritis, left knee Plan We discussed options today which include steroid injection. They did consent to move forward with the left knee injection, which was tolerated well. I recommended rest, ice and elevation and OTC anti-inflammatories PRN for discomfort. An order for compound cream was also placed in the office today. If symptoms persist or worsens over the next 6-8 weeks, patient will contact the office, otherwise follow-up as needed. Patient Instructions: Scribed for Susy Hay PA-C, by Timothy Daniels medical investigator, on 12/04/2023 at 8:45 AM YONI. Susy Rodriguez PA-C, have personally reviewed and agree with the information entered by the scribe. Coding Level of Care Code Est Pt Level 3 (42584) Diagnoses Primary osteoarthritis of left knee M17.12 Osteoarthritis type: primary CPT Codes Coding - Joint 7: 85983 - Glenohumeral/Tronchanteric Bursa/Intraarticular ([id number])
[2023-12-04 08:49] VITALS: BMI 38.3
== END 2023-12-04 10:12 | disposition home or self-care (01) ==
PROVIDERS: PCP Nurse Practitioner Family; Visit Provider Physician Assistant
DX: M17.12 Unilateral primary osteoarthritis, left knee (principal)
CPT/HCPCS: 20610

== ENCOUNTER → 2023-12-04 08:36 | Outpatient (BNVA) | payer MEDICARE, SELFPAY | PROVIDERS: PCP Nurse Practitioner Family; Visit Provider Physician Assistant | DX: M17.12 Unilateral primary osteoarthritis, left knee (principal) | CPT/HCPCS: 20610; J1040 ==

== ENCOUNTER 2023-12-19 08:23 | Outpatient (AMB) | payer MEDICARE, SELFPAY ==
[2023-12-19 08:36] VITALS: BP 142/86; PULSE 47; O2SAT 98; BMI 37.0
--- NOTE | 2023-12-19 08:36 | MHC.PC.OV ---
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 Welfare Manager Required: No Specialist Wound Care: Not Required per policy Accompanied by: Self / Same As Patient Allergies gabapentin Adverse Reaction (Intermediate, Verified 12/19/23 08:49) Confusion zolpidem [Zolpidem] Adverse Reaction (Intermediate, Verified 12/19/23 08:49) CONFUSION Medication List - Last Reconciled 12/19/23 by Jas Rangel PA-C acetaminophen ER 650 mg PO Q12H 30 days atenolol 25 mg PO DAILY cholecalciferol (vitamin D3) 25 mcg PO DAILY ferrous sulfate 325 mg PO DAILY levothyroxine 75 mcg PO QAM losartan-hydrochlorothiazide 50-12.5 mg 1 tab PO DAILY metformin 500 mg PO BID 90 days nystatin (Nystop) 1 appl topical TID omeprazole 20 mg PO DAILY 90 days simvastatin 40 mg PO BEDTIME tizanidine 2 mg PO BEDTIME 90 days Tobacco use date assessed: 12/19/23 Fall risk assessment: No Falls in past year Last assessed Fall Risk: 12/19/23 Dental Screening Dental Screen Date: 12/19/23 Did you have a dental visit in the last 12 months?: Yes Did you have a dental problem in the last 6 months where you did not have access to dental care?: No Was dental information given to patient?: Patient has dentist HPI DM f/u HPI Details Patient is an 88-year-old female here today for a follow-up visit. Patient has a past medical history significant for type 2 diabetes, obesity, chronic right shoulder pain secondary to post herpetic neuralgia, hypothyroidism, hypertension. Concerns--> continues to have right shoulder pain secondary to a post herpetic neuralgia. Has tried many different modalities was his injections, topical therapies and oral medications all without any significant relief. .. Osteoarthritis of the knee: Has been followed by [facility] and has been getting injections in her knees .. Type 2 diabetes: Has been well controlled. Today's A1c remains below 7.0. We have decreased her metformin to 500 b.i.d and will continue this current dose.. .. Hypothyroidism: Continues on 75 mcg of levothyroxine with good effect. Most recent TSH acceptable. .. Hypertension: Blood pressure today in office acceptable. She does monitor blood pressure from time to time reports normal readings 120s to 130. Laboratory Tests 02/10/22 02/15/22 01/26/23 09:05 09:18 09:19 Hgb A1c (Clinic) 6.2 H 6.4 H Urine Microalbumin 10.0 PFSH Medical History Diabetes High cholesterol HTN (hypertension) Hypothyroid Post herpetic neuralgia Surgical History History of lumbar surgery History of total right knee replacement History of bladder surgery Family History Father Throat cancer Mother Diabetes Son Substance use disorder Son Substance use disorder Social History Housing: House Alcohol intake: never Patient Tobacco Use Status: Former Tobacco user e-Cigarette/Vaping Use: Never Used Second Hand Smoke Exposure: No service: No Current occupational status: retired Cognitive needs: Yes (walker) Hearing needs: No Vision needs: Yes (readig glasses) Questionnaire PHQ-9 Over the last 2 weeks, how often have you been bothered by any of the following problems? 1. Little interest or pleasure in doing things: not at all 2. Feeling down, depressed, or hopeless: not at all 3. Trouble falling or staying asleep, or sleeping too much: not at all 4. Feeling tired or having little energy: not at all 5. Poor appetite or overeating: not at all 6. Feeling bad about yourself - or that you are a failure or have let yourself or your family down: not at all 7. Trouble concentrating on things, such as reading the newspaper or watching television: not at all 8. Moving or speaking so slowly that other people could have noticed. Or the opposite - being so fidgety or restless that you have been moving around a lot more than usual: not at all 9. Thoughts that you would be better off or of hurting yourself in some way: not at all Total score: 0 Depression Screening Interpretation: Positive Depression Screening Follow-up: Existing condition Depression Screening Done: Yes 01443 - PHQ-9 Billing: Yes Source: Developed by Drs. Jack Castro, Meeta Magana, Chaim Ramirez and colleagues, with an educational armani from [employer]. Thrive Questionnaire Date Thrive assessed: 12/19/23 I am a: Patient What is your living situation today?: I have a steady place to live Within the past 12 months, did the food you bought not last and you didn't have the money to get more?: Never true Within the past 12 months, did you worry whether your food would run out before you got money to buy more?: Never true Do you have trouble paying for medicines?: No Do you have trouble getting transportation to medical appointments?: No Do you have trouble paying your heating and electricity bill?: No Do you have trouble taking care of your child, family member or friend?: No Do you have trouble with day-to-day activities such as bathing, preparing meals, shopping, managing finances, etc.?: No Are you currently unemployed and looking for a job?: No Are you interested in more education?: No Please select the resources that you would like help with: None THRIVE Score: 0 AUDIT C Alcohol Use Questionnaire (AUDIT-C) 1. How often do you have a drink containing alcohol?: Never Total Score: 0 Score Reviewed/Action Taken: No GUANAKITO-7 AMB Questionnaire GUANAKITO-7 Date GUANAKITO - 7 assessed: 12/19/23 Feeling nervous, anxious, or on edge: 0 = Not at all Not being able to stop or control worryin = Not at all Worrying too much about different things: 0 = Not at all Trouble relaxin = Not at all Being so restless that it is hard to sit still: 0 = Not at all Becoming easily annoyed or irritable: 0 = Not at all Feeling afraid as if something awful might happen: 0 = Not at all Total GUANAKITO-7 score (0-4 normal; 5-9 mild; 10-14 moderate; 15-21 severe): 0 Source: Developed by Meeta Nolasco Kurt Kroenke and colleagues, with an educational armani from [employer]. Review of Systems Const Denies headache(s) Eyes Denies loss of vision ENT Denies vertigo, Denies dizziness, Denies headache(s) and Denies sore throat Card Denies chest pain, Denies leg edema and Denies lightheadedness Resp Denies cough, Denies hemoptysis and Denies wheezing GI Denies abdominal pain, Denies melena, Denies constipation, Denies diarrhea and Denies vomiting Denies urinary frequency, Denies dysuria and Denies urinary urgency Musc Denies arthralgias, Denies joint swelling, Denies numbness and Denies tingling Neuro Denies Abnormal speech present, Denies behavioral changes, Denies vertigo, Denies dizziness, Denies headache(s), Denies loss of vision, Denies memory loss, Denies numbness and Denies tingling Psych Denies anxiety, Denies behavioral changes, Denies depression, Denies memory loss and Denies panic attacks Jovan/Lymph Denies easy bleeding and Denies easy bruising Aller/Immun Denies wheezing Physical exam (Primary Care) Vital Signs: Last Vital Signs Pulse 47 L 12/19/23 08:36 BP 142/86 H 12/19/23 08:36 Pulse Ox 98 12/19/23 08:36 Oxygen Delivery Method Room Air 12/19/23 08:36 BMI result Body Mass Index 37.0 Tobacco/Smoking Status: Tobacco use Status Tobacco use date assessed 12/19/23 12/19/23 08:37 Patient Tobacco Use Status Former Tobacco user 12/19/23 08:37 e-Cigarette/Vaping Use Never Used 12/19/23 08:37 PHQ-9: PHQ-9 Score PHQ-9: Total score 0 12/19/23 09:12 Depression Screening Interpretation: Positive Depression Screening Follow-up: Existing condition Thrive Assessment: Date of Thrive Assessment Date Thrive assessed 12/19/23 12/19/23 08:37 Const General: healthy appearing, no acute distress, alert and awake Nutritional Appearance: well nourished Orientation/consciousness: oriented to person, oriented to place and oriented to time HENMT Ears: TM's normal bilaterally General nose exam: Normal nasal mucous membranes and turbinates present Eyes Conjunctivae: conjunctivae normal Sclerae: sclerae normal Pupils: Equal, round and reactive pupils present Neck Neck: Yes no lymphadenopathy and Yes no JVD Thyroid: Thyroid normal Carotids: no bruits Resp Effort & Inspection: normal respiratory effort and not tachypneic Auscultation: no crackles, no rales, no rhonchi and no wheezes Cardio Rate: regular rate Rhythm: regular rhythm Heart sounds: no murmurs and normal S1 and S2 GI Palpation (GI): Soft to palpation, nontender, no hepatomegaly and no splenomegaly Auscultation: normal bowel sounds Skin General skin exam: no rashes or lesions noted and dry skin Neuro General: oriented to person, oriented to place and oriented to time Cranial nerves: Yes Equal, round and reactive pupils present Speech: No Abnormal speech present Gait exam (Neuro): Normal gait present Motor exam (neuro): no tremor noted Extrem Right upper extremity: full ROM Left upper extremity: full ROM Right lower extremity: full ROM; no edema Left lower extremity: full ROM; no edema Psych Mental Status: mental status grossly normal Speech and movement: Normal speech and movement present Affect: normal affect Attitude: cooperative Thought process: Normal thought process present Results AMB Hemoglobin A1c AMB Hemoglobin A1c 6.7 % Last Edit by PRECIOUS [place] on 12/19/23 08:51 Immunizations tetanus-diphtheria toxoids-Td 2 Lf unit-2 Lf unit/0.5 mL IM suspension Performing Provider: Jas Rangel PA-C Performing Location: [facility] Administered by: SENIA Jones on 12/19/23 09:12 Dose Route Admin Location Dispensed Lot Number Expiration Date NDC Atmospheric Scientist 0.5 mL IM Left Deltoid 0.5 mL [id number] 10/28/24 [address]-8 [employer] VIS Given Date VIS Provided VIS Publication Date 12/19/23 Single Vaccine 21 Eligibility Eligibility Date Funding Source Not [facility] Eligible 12/19/23 State funds Results Reviewed Results Reviewed: Laboratory Last Values Hgb A1c (Clinic) 6.7 % (4.0-6.0) H 12/19/23 08:50 Assessment and Plan Assessment & Plan (1) DMII (diabetes mellitus, type 2): Code(s): E11.9 - Type 2 diabetes mellitus without complications Qualifiers: Diabetes mellitus complication status: without complication Diabetes mellitus custodial insulin use: without custodial use Qualified Code(s): E11.9 - Type 2 diabetes mellitus without complications Plan: Patient's type 2 diabetes well controlled with current dose of metformin. Goal A1c is to remain below 8.0 due to patient's age and comorbidities. (2) HTN (hypertension): Code(s): I10 - Essential (primary) hypertension Qualifiers: Hypertension type: unspecified Qualified Code(s): I10 - Essential (primary) hypertension Plan: Patient's blood pressure in office today acceptable. Will continue her on current dose of blood pressure medication. Goal blood pressures to be below 140/90 (3) Hypothyroid: Code(s): E03.9 - Hypothyroidism, unspecified Qualifiers: Hypothyroidism type: unspecified Qualified Code(s): E03.9 - Hypothyroidism, unspecified Plan: Patient's most recent TSH stable. Will continue her on her current dose of levothyroxine at 75 mcg. (4) Post herpetic neuralgia: Code(s): B02.29 - Other postherpetic nervous system involvement Plan: Patient is status post fatigue infection in 2020. Continues with right shoulder pain. As per HPI has tried many different modalities to reduce her pain though have not been effective. (5) Obese: Code(s): E66.9 - Obesity, unspecified Qualifiers: Obesity type: due to excess calories Obesity classification: adult class 2 (BMI 35 - 39.9) Serious obesity comorbidity presence: without serious comorbidity Body mass index: BMI 38.0-38.9 Qualified Code(s): E66.09 - Other obesity due to excess calories; Z68.38 - Body mass index [BMI] 38.0-38.9, adult Plan: Patient does understand her BMI is over 30 will work on better eating habits to help reduce her weight. Orders: Orders Complete Blood Count no Diff Today D50.9 - Iron deficiency anemia, unspecified TSH reflex Free T4 Today E03.9 - Hypothyroidism, unspecified Microalbumin, Random (w Creat) Today I10 - Essential (primary) hypertension AMB Hemoglobin A1c Today E11.9 - Type 2 diabetes mellitus without complications IRON PROFILE Today D50.9 - Iron deficiency anemia, unspecified Comprehensive [place]. Panel Fast Today E11.9 - Type 2 diabetes mellitus without complications Td State Immunization Today E11.9 - Type 2 diabetes mellitus without complications, Z23 - Encounter for immunization Coding Level of Care Code Est Pt Level 4 (52625) Diagnoses Type 2 diabetes mellitus without complication, without long-term current use of insulin E11.9 Diabetes mellitus complication status: without complication Diabetes mellitus custodial insulin use: without terminal operations manager use Hypertension, unspecified type I10 Hypertension type: unspecified Hypothyroidism, unspecified type E03.9 Hypothyroidism type: unspecified Post herpetic neuralgia B02.29 Class 2 obesity due to excess calories without serious comorbidity with body mass index (BMI) of 38.0 to 38.9 in adult E66.09; Z68.38 Obesity type: due to excess calories Obesity classification: adult class 2 (BMI 35 - 39.9) Serious obesity comorbidity presence: without serious comorbidity Body mass index: BMI 38.0-38.9
[2023-12-19 09:20] VITALS: BP 122/60
== END 2023-12-19 09:15 | disposition home or self-care (01) ==
PROVIDERS: PCP Nurse Practitioner Family; Visit Provider Physician Assistant
DX: E11.9 Type 2 diabetes mellitus without complications (principal); I10 Essential (primary) hypertension; E03.9 Hypothyroidism, unspecified; B02.29 Other postherpetic nervous system involvement; E66.09 Other obesity due to excess calories; Z68.38 Body mass index [BMI] 38.0-38.9, adult; Z23 Encounter for immunization
CPT/HCPCS: 83036; 90471; 90714; 99214

== ENCOUNTER 2024-01-23 00:44 | Emergency (ER) | payer MEDICARE, SELFPAY ==
[2024-01-23] VITALS (7 sets, daily range): BP systolic 140–187; BP diastolic 66–96; PULSE 72–94; RESP 15–20; TEMP 36.6–37.2; O2SAT 94–97; BMI 37.6
--- NOTE | ~2024-01-23 | XR_ITS ---
EXAMINATION: XR HIP, LEFT CLINICAL INFORMATION: Pain COMPARISON: 10/11/2019 TECHNIQUE: Two views of the left hip. AP pelvis. FINDINGS: Alignment across the hips is anatomic. There is mild narrowing of the joint spaces along with acetabular spurring. No acute fracture is seen. Sacroiliac joints and pubic symphysis appear intact with degenerative change. XR/XR hip LT min 2V IMPRESSION: No acute findings identified. Mild degenerative changes of the hips.
--- NOTE | 2024-01-23 01:14 | ED.EXTPRO ---
HPI - Extremity Problem General Chief complaint: Extremity Injury, Lower Stated complaint: Lt Groin Pain Time Seen by Provider: 01/23/24 00:52 Source: patient, family, EMS and old records reviewed Mode of arrival: EMS Limitations: no limitations History of Present Illness HPI Narrative: 88 yo female with PMH of DM, HTN, anemia, GERD, arthritis, was brought in for sudden onset of L groin pain that has no resolved. Reportedly walking down the stairs no trauma reported then had severe L groin pain and could not get onto or off of cough. Now has no pain and states she feels better. 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 Consistency: now resolved Location: left and lower extremity Quality: aching and constant Radiation: none Relieving factors: rest Exacerbating factors: walking Associated symptoms: denies other symptoms Related Data Home Medications ?Medication ?Instructions ?Recorded ?Confirmed cholecalciferol (vitamin D3) 25 25 mcg PO DAILY 08/23/21 12/19/23 mcg (1,000 unit) capsule Previous Rx's ?Medication ?Instructions ?Recorded omeprazole 20 mg capsule,delayed 20 mg PO DAILY 90 days #90 caps 02/15/22 release tizanidine 2 mg tablet 2 mg PO BEDTIME for muscle spasm 01/18/23 90 days #90 tabs metformin 500 mg tablet 500 mg PO BID 90 days #180 tabs 08/25/23 acetaminophen 650 mg 650 mg PO Q12H 30 days #60 tabs 09/05/23 tablet,extended release levothyroxine 75 mcg tablet 75 mcg PO QAM #90 tabs 10/01/23 simvastatin 40 mg tablet 40 mg PO BEDTIME #90 tabs 10/01/23 ferrous sulfate 325 mg (65 mg 325 mg PO DAILY #90 tabs 10/15/23 iron) tablet losartan 50 mg-hydrochlorothiazide 1 tab PO DAILY #90 tabs 10/30/23 12.5 mg tablet atenolol 25 mg tablet 25 mg PO DAILY #90 tabs 11/06/23 nystatin 100,000 unit/gram topical 1 appl topical TID #60 grams 01/10/24 powder (Nystop) Allergies Allergy/AdvReac Type Severity Reaction Status Date / Time gabapentin AdvReac Intermediate Confusion Verified 01/23/24 01:01 zolpidem [Zolpidem] AdvReac Intermediate CONFUSION Verified 01/23/24 01:01 Review of Systems Review of Systems: Constitutional : No Fever, No Chills ENT/Mouth : No Ear Pain, No Hoarseness, No sore throat Eyes: No Eye Pain, No Swelling, No Redness, No Foreign Body Cardiovascular : No Chest Pain, No SOB Respiratory : No Cough, No Dyspnea Gastrointestinal : No Nausea, No Vomiting, No Diarrhea, No abdominal Pain Genitourinary : No Dysuria, No Hematuria Musculoskeletal : positive joint pain, No Myalgias, No Joint Swelling Skin : No Skin lacerations, No rash Neuro : No Weakness, No Numbness, No Loss of Consciousness, No Dizziness, No Headache All other systems reviewed and are negative PMFSH Past Medical History Attestation statement: The following information was validated with the patient. Source: old records reviewed Medical History Post herpetic neuralgia Hypothyroid High cholesterol HTN (hypertension) Diabetes Surgical History History of lumbar surgery History of total right knee replacement History of bladder surgery Family History Family History Father Throat cancer Mother Diabetes Son Substance use disorder Son Substance use disorder Social History Social History Housing: House Alcohol intake: never Patient Tobacco Use Status: Former Tobacco user e-Cigarette/Vaping Use: Never Used Second Hand Smoke Exposure: No Advance Directives: No Advance Directives Information Provided: No Do you have a plan to hurt others: No Plan service: No Current occupational status: retired Cognitive needs: Yes (walker) Hearing needs: No Vision needs: Yes (readig glasses) Physical Exam Vital Signs: Vital Signs: Last Vital Signs Temp 98.3 F 01/23/24 01:45 Pulse 77 01/23/24 01:45 Resp 16 01/23/24 01:45 BP 187/85 H 01/23/24 01:45 Pulse Ox 95 01/23/24 01:45 O2 Del Method Room Air 01/23/24 01:45 BMI result Body Mass Index 37.6 Appearance: Alert. Oriented X3. No acute distress. Eyes: Pupils equal, round and reactive to light. ENT: Pharynx normal. Neck: Normal inspection. Neck supple. CVS: Normal heart rate and rhythm. Pulses normal. Respiratory: No respiratory distress. Breath sounds normal. Abdomen: Soft and nontender. Skin: Skin warm and dry. Normal skin color. Normal skin turgor. Extremities: No lower extremity edema. distal pulses 2+ in PT/DP able to lift leg and bend knee on her own, no mass felt in L groin no hernia Neuro: Oriented X 3. No motor deficit. No sensory deficit. Medical Decision Making Medical Decision Making [facility] Narrative: 88 yo female with PMH of DM, HTN, anemia, GERD, arthritis, brought in with L groin pain has no signs of infection, no mass, no hernia, distal pulses intact now has no pain and is raising leg on her own has no back pain either at this time abdomen is also benign. will obtain xray of L hip Differential Diagnosis Differential Diagnoses: The differential diagnosis associated with the presentation includes spasm, strain, sprain, occult injury Admission/Observation Consideration of admission/observation: Escalation of care including admission/observation considered physician observation started at 302am patient cannot ambulate feels pulling in her L groin has pain likely strain NV intact will refer to PT/CM Independent Interpretation I performed an independent interpretation of an: Plain X-Ray (no fracture) Radiology Impression Discussion of test interpretation with radiology: I have reviewed the radiologist's reading. Independent Historian Clinical information obtained from an independent historian. History obtained from or confirmed by: Other (daughter) External Record Review External record reviewed: Inpatient record Discharge Plan Discharge Clinical Impression: Groin strain Patient Disposition: Still a Patient Prescriptions: No Action tizanidine 2 mg tablet 2 mg PO BEDTIME 90 Days Qty: 90 1RF metformin 500 mg tablet 500 mg PO BID 90 Days Qty: 180 1RF acetaminophen 650 mg tablet extended release 650 mg PO Q12H 30 Days Qty: 60 4RF simvastatin 40 mg tablet 40 mg PO BEDTIME Qty: 90 1RF levothyroxine 75 mcg tablet 75 mcg PO QAM Qty: 90 1RF ferrous sulfate 325 mg (65 mg iron) tablet 325 mg PO DAILY Qty: 90 2RF losartan-hydrochlorothiazide 50-12.5 mg tablet 1 tab PO DAILY Qty: 90 2RF atenolol 25 mg tablet 25 mg PO DAILY Qty: 90 2RF nystatin [Nystop] 100,000 unit/gram powder 1 appl topical TID Qty: 60 2RF cholecalciferol (vitamin D3) 25 mcg (1,000 unit) capsule 25 mcg PO DAILY omeprazole 20 mg capsule,delayed release(DR/EC) 20 mg PO DAILY 90 Days Qty: 90 1RF Print Language: Latvian
--- OUTSIDE RECORDS SUMMARY | 2024-01-23 01:45 | XMS_ITS | Patient Health Record ---
[facility] Address [address] [place] [address] Care Team Providers Care Survey Statistician Name Role Phone Jas Rangel Primary Care Provider UnavailPraveen Raymundo Unavailable [phone] ALLERGIES Allergen (clinical drug ingredient) Drug/Non Drug Allergy documented on EMR Reaction Allergy Type Onset Date Status zolpidem Ambien loopy/ out of it Drug Allergy Active REASON FOR REFERRAL No Information MEDICATIONS Medication SIG (Take, Route, Frequency, Duration) Notes Start Date End Date Status Tylenol Not-Taking Eucerin . as directed Externally Apply Twice a day to Feet for 30 days 03/13/2015 Active Atenolol 25 MG 1 tablet Orally Once a day Not-Taking Cranberry Active Tylenol Active Cephalexin 500 MG 1 capsule Orally every 6 hrs for 5 day(s) Active Thyroid Active Losartan Potassium 50-1.5 mg once a day Active Levothyroxine Sodium 100 MCG 1 tablet in the morning on an empty stomach Orally Once a day for 30 day(s) Active Aspirin Adult Low Strength Active Simvastatin 40 MG as directed Orally Once a day Active Meloxicam 15 MG 1 tablet Orally Once a day for 30 day(s) Active metFORMIN HCl 500 MG 4 tab Orally AM /PM Active IMMUNIZATIONS Vaccine Route Administration Date Status Comme nts COVID-19 Pfizer BioNTech Vaccine Unknown 07/20/2021 Administered 1st 10/29/20 2nd 11/19/20 Influenza Unknown 05/23/2016 Administered Influenza Unknown 08/08/2017 Administered Influenza Unknown 05/29/2018 Administered Influenza Unknown 05/29/2019 Administered Influenza Unknown 05/20/2022 Administered SOCIAL HISTORY Tobacco Use: Social History Observation Description Date Details (start date - stop date) Former Smoker NA - NA Sex Assigned At : Social History Observation Description Sex Assigned At Unknown Tobacco Use/Smoking Question Answer Notes Are you a: former smoker Additional Findings: Tobacco Non-User Current no n-smoker Alcohol Screen Question Answer Notes Did you have a drink containing alcohol in the p ast year? No Points 0 Interpretation Negative Tobacco use other than smoking: Question Answer Notes Are you an other tobacco user? No PROBLEMS Problem Type ICD Code Onset Dates Problem Status W/U Status Risk SNOMED Code Notes Problem Other hammer toe(s) (acquired), right foot (M20.41) Active confirmed Acquired hammer toe of right foot (957380292353 9105) Response to treatment,I mprovement Problem Type 2 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 gangrene (E11.51) Active confirmed Type 2 diabetes mellitus with peripheral angiopathy (838659947) Problem Other hammer toe(s) (acquired), left foot (M20.42) Active confirmed Acquired hammer toe of left foot ([id number] 9103) Response to treatment,I mprovement VITAL SIGNS Height 5 ft 9 in in 10/06/2023 Weight 210 lbs 10/06/2023 BMI 31.01 kg/m2 10/06/2023 PROCEDURES Procedure Date Ordered Date Performed Result Body Sit e 99919-JXMKGWQ NAIL, 6 OR MORE 03/24/2023 N/A 06002-Bylgkhqd Plate 03/24/2023 N/A 85134-Byudfyyj Plate Each Additional 03/24/2023 N/A 71652-BKAJ SKIN LESIONS, 2 TO 4 03/24/2023 N/A 86524-JBMXRRW NAIL, 6 OR MORE 10/06/2023 N/A 65621-Tighxqky Plate 10/06/2023 N/A 45940-Njwgjcei Plate Each Additional 10/06/2023 N/A 51643-MIXG SKIN LESIONS, 2 TO 4 10/06/2023 N/A Encounters Encounter Location Date Provider Diagnosis [address] [address] [facility] [address] [facility] [address] [address] 03/24/2023 Praveen Shearer Ingrowing nail L60.0 ; Type 2 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 gangrene E11.51 ; Tinea unguium B35.1 ; Pain in right toe(s) M79.674 ; Pain in left toe(s) M79.675 ; Other hammer toe(s) (acquired), right foot M20.41 and Other hammer toe(s) (acquired), left foot M20.42 [facility] [address] [address] 07/14/2023 Praveen Manfred [facility] [address] [address] 07/21/2023 [facility] [address] 09/15/2023 [facility] Manfred [facility] [address] 09/29/2023 [facility] [address] 10/06/2023 Praveen Shearer Type 2 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 gangrene E11.51 ; Tinea unguium B35.1 ; Pain in right toe(s) M79.674 ; Pain in left toe(s) M79.675 ; Ingrown nail L60.0 ; Other hammer toe(s) (acquired), right foot M20.41 and Other hammer toe(s) (acquired), left foot M20.42 ASSESSMENTS Encounter Date Diagnosis Assessment Notes Treatment Notes Treatment Clinical Notes 03/24/2023 Ingrowing nail (ICD-10 - L60.0) 03/24/2023 Type 2 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 gangrene (ICD-10 - E11.51) 10/06/2023 Type 2 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 gangrene (ICD-10 - E11.51) 10/06/2023 Tinea unguium (ICD-10 - B35.1) 03/24/2023 Tinea unguium (ICD-10 - B35.1) 10/06/2023 Pain in right toe(s) (ICD-10 - M79.674) 03/24/2023 Pain in right toe(s) (ICD-10 - M79.674) 10/06/2023 Pain in left toe(s) (ICD-10 - M79.675) 03/24/2023 Pain in left toe(s) (ICD-10 - M79.675) 10/06/2023 Ingrown nail (ICD-10 - L60.0) 10/06/2023 Other hammer toe(s) (acquired), right foot (ICD-10 - M20.41) Response to treatment,Improvem ent 10/06/2023 Other hammer toe(s) (acquired), left foot (ICD-10 - M20.42) Response to treatment,Improvem ent 03/24/2023 Other hammer toe(s) (acquired), right foot (ICD-10 - M20.41) Patient Educated with: DIABETIC FOOT CARE INSTRUCTIONS.pdf (DIABETIC FOOT CARE INSTRUCTIONS.pdf) 03/24/2023 Other hammer toe(s) (acquired), left foot (ICD-10 - M20.42) PLAN OF TREATMENT Pending Test Test Name Order Date Hemoglobin A1c 12/05/2014 X ray : Foot, left 3V 06/21/2012 09525-RBOCBNZ NAIL, 6 OR MORE 11/30/2021 90158-RJXSWXT NAIL, 6 OR MORE 11/18/2022 61634-ALCAVSP NAIL, 6 OR MORE 03/24/2023 42340-CSGXONJ NAIL, 6 OR MORE 10/06/2023 00831-QSKTJJU NAIL, 6 OR MORE 06/12/2015 81863-GKFFWJT NAIL, 6 OR MORE 12/05/2014 88656-EPCOZES NAIL, 6 OR MORE 08/19/2014 72276-FRYNQSB NAIL, 6 OR MORE 09/04/2015 73308-IDMRIHF NAIL, 6 OR MORE 03/13/2015 85852-OFBNYNF NAIL, 6 OR MORE 03/14/2017 39404-FXNNTBJ NAIL, 6 OR MORE 04/09/2013 13287-ATBSBIP NAIL, 6 OR MORE 07/09/2013 02882-MBRLPIA NAIL, 6 OR MORE 11/13/2012 97404-DSSSYAX NAIL, 6 OR MORE 01/18/2013 13535-FLAEUGS NAIL, 6 OR MORE 11/12/2013 21241-ENGAGPT NAIL, 6 OR MORE 02/14/2014 57365-BIUMNBD NAIL, 6 OR MORE 05/20/2014 51934-IOQKFPV NAIL, 6 OR MORE 05/26/2017 31771-DFESRRS NAIL, 6 OR MORE 09/19/2017 47812-SHMHGLI NAIL, 6 OR MORE 12/12/2017 25904-KFOSRNN NAIL, 6 OR MORE 03/02/2018 71047-BBTRXEJ NAIL, 6 OR MORE 05/04/2018 61823-MLAHSWZ NAIL, 6 OR MORE 07/27/2018 14963-VGBXSXJ NAIL, 6 OR MORE 10/12/2018 31758-EPXEKOO NAIL, 6 OR MORE 01/01/2019 88146-JBNDXVW NAIL, 6 OR MORE 03/12/2019 23697-RFMIBZS NAIL, 6 OR MORE 08/02/2019 39853-SOYIBGW NAIL, 6 OR MORE 05/01/2020 96301-IERLYSA NAIL, 6 OR MORE 09/25/2020 61831-GKWZDOM NAIL, 6 OR MORE 08/24/2021 46240-Takxcfqx Plate 08/24/2021 71945-Qdaczscv Plate 05/01/2020 53248-Nbpuktyi Plate 10/12/2018 41803-Ewcnyuzm Plate 08/02/2019 35435-Qhroeqen Plate 03/12/2019 23856-Zaamxenk Plate 01/01/2019 87299-Xowuxfrj Plate 03/02/2018 77045-Ecfrwngw Plate 07/27/2018 46735-Mhktjvez Plate 09/19/2017 27909-Zqnicfvz Plate 12/12/2017 08691-Tlctctbk Plate 03/14/2017 96127-Yxcisith Plate 05/26/2017 14775-Ryyiyaeb Plate 05/20/2014 18822-Fdozuzwp Plate 02/14/2014 88510-Jvgpcuul Plate 11/12/2013 80201-Mkiqlcqn Plate 01/18/2013 34330-Hibbzjsw Plate 07/09/2013 75084-Fvhukekw Plate 11/13/2012 13222-Fnkqoswr Plate 03/13/2015 11657-Zbprzwbd Plate 09/04/2015 90177-Vlwnsoyd Plate 08/19/2014 37312-Guvkvkms Plate 12/05/2014 04034-Ujasdrbl Plate 06/12/2015 97091-Otknlzhb Plate 10/06/2023 01686-Jwoleazq Plate 03/24/2023 81984-Jqlfjufg Plate 11/18/2022 16698-Goironws Plate 11/30/2021 45044-Jzxpzalh Plate 09/25/2020 24275-Qeyeuvhk Plate Each Additional 04/2021 77012-Fgwcfiyf Plate Each Additional 12059-Lxxfvsaz Plate Each Additional 11/2022 39378-Pgmlytmr Plate Each Additional 03/2023 85367-Habhvwsv Plate Each Additional 29190-Jwcofbhd Plate Each Additional 52686-Qwkgzcyc Plate Each Additional 50140-Smcanrck Plate Each Additional 10/2013 84789-Xurypltf Plate Each Additional 28546-Wlcfkiwp Plate Each Additional 48741-Qljgnriw Plate Each Additional 77489-Kjjvmweo Plate Each Additional 04/2017 78903-Dtstuooq Plate Each Additional 82578-Ivkdcepq Plate Each Additional 69335-Cpmmtjlz Plate Each Additional 39420-Fuatxzbf Plate Each Additional 68210-Tuvienxd Plate Each Additional 10/2013 57946-Qhzzejfj Plate Each Additional 10/2017 67334-Zquaoghn Plate Each Additional 96994-Pyecfkuc Plate Each Additional 00461-Ugbqbnsv Plate Each Additional 05/2018 31059-Poerdwze Plate Each Additional 29703-Cfxayjif Plate Each Additional 92480-Yljccprf Plate Each Additional 06384-Detcbmgv Plate Each Additional 91969-Hrdxmbdg Plate Each Additional 66932 I&D ABSCESS- SIMPLE,SINGLE 021 39454-EQCI SKIN LESIONS, 2 TO 4 10/06/19 24 10627-SWAP SKIN LESIONS, 2 TO 4 03/24/20 23 23459-XKHT SKIN LESIONS, 2 TO 4 11/19/19 23 23457,U1119-BOL TENDON SHEATH/LIGAMENT 0 11/06/2012,T3969-LQB TENDON SHEATH/LIGAMENT 0 11/13/2012,T2495-TRW TENDON SHEATH/LIGAMENT 1 09/30/2011 Next Appt Details Provider Name:Praveen Shearer , 02/09/2024 12:30:00 PM, [address] [place], [address], Insurance Providers Payer Name Payer Address Payer Phone Subscriber Number Group Number Insured Name Patient Relationship to Insured Coverage Start Date Coverage End Date [employer] Medicare Advantage [facility] [address] [place] [address] [id number] Julia Resendiz Self - patient is the insured MEDICAL (GENERAL) HISTORY Medical History History ICD Code hypertension joint implants/screws thyroid disorder cholesterol type II diabetes Surgical History Surgery Date(Month/Year) knee replacement, right 05/2011 Hospitalization History Reason Date(Month/Year) shingles 11/2019 [facility] shoulder injury 02/21/18
--- NOTE | 2024-01-23 02:00 | PC.NURSE ---
pt meena from home, a&ox4, respirations even and unlabored, reports when ambulating to bathroom she experienced a sharp pain to the left groin which left her inmobile and unable to walk. pt daughter at bedside reports this has never happened before. pt reports on arrival pain has subsided.
[2024-01-23 04:10] LABS: Influenza A PCR NEGATIVE (Negative); Influenza B PCR NEGATIVE (Negative); Resp Syncy Virus RNA Qual PCR NEGATIVE (Negative); SARS COV2 PCR INHOUSE NEGATIVE (Negative)
[2024-01-23 08:45] LABS: Glucose, Whole Blood 106 mg/dL (60-115)
--- NOTE | 2024-01-23 10:24 | MHC.CM.ED ---
Addendum entered by Jeannette Choi 01/23/24 11:42: [facility] able [facility] offer a bed and is in the process of obtaining insurance auth. Original Note: Received case management consult overnight. Patient came to the ER due to groin pain. Physical therapy eval completed. Short term rehab is recommended. Met with patient and daughter Jasmine. Patient lives with her , uses a walker for mobility and has private pay help at home for meals and housekeeping. Patient has to self-cath 2-3 times per day d/t neurogenic bladder. Patient is unable to do that at this time due to groin pain. PCP verified. Copy of HCP verified to be on file. Patient received 2 Pfizer vaccines. Jasmine questioned about patient going to acute rehab instead of a half-way facility. Patient has [employer] for insurance. T/W explained [facility] is not likely to authorize acute rehab unless a patient has suffered from an acute CVA. Jasmine verbalized understanding. List of facilities contracted with patient's insurance provided. Facility choices are: 1) [facility] 2) [facility] 3) [facility]. Referrals made via [facility]. Continue to monitor for d/c needs.
--- NOTE | 2024-01-23 13:16 | MHC.CM.ED ---
Insurance auth has been obtained by [facility]. Patient will go to [facility], Room 405. [facility]LS booked for 7pm. Patient, daughter Lindsey Ferraro RN and Jonelle ELDRIDGE aware. Continue to monitor for d/c needs.
--- NOTE | 2024-01-23 13:20 | PC.NURSE ---
Med rec not done yet [facility]. Spoke with Pk from pharmacy and he will let the ED retail pharmacy manager know and she will determine if med rec can be done and given meds prior to leaving [facility].
--- NOTE | 2024-01-23 16:22 | PC.NURSE ---
This RN straight cath'd the patient and was able to obtain 520cc clear yellow urine
--- NOTE | 2024-01-23 18:25 | PC.NURSE ---
Nurse to nurse called in to [facility] and spoke to Jacinta regarding patient. EMS arriving at 7pm
[2024-01-23] MEDS: TiZANidine HCL 4 MG TABLET 2 MG PO (19:59)
--- NOTE | 2024-01-23 21:33 | MHC.CM.ED ---
Addendum entered by Eva Oconnor 01/23/24 21:36: [facility] called. Verified that they could not transport patient to [facility] until midnight. BLS transport changed to 01/23 at 10am. 10am transport requested by [facility]. Med nec completed. 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 Primary RN aware, will notify patient. Original Note: [facility] called at 8pm, as they had not picked up patient yet. S was booked for 7pm. 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 CM called [facility]. They do not have the staff available for an admission at that hour. Will arrange transport for the morning.
[2024-01-23] MEDS: Acetaminophen 325 MG TABLET 650 MG PO (22:56)
[2024-01-23] MEDS: metFORMIN HCl 500 MG TABLET PO (22:56)
[2024-01-24] MEDS: Levothyroxine Sodium 75 MCG TABLET PO (05:42)
[2024-01-24] MEDS: Omeprazole 20 MG CAPSULE.DR PO (05:42)
[2024-01-24 05:55] VITALS: BP 185/69; PULSE 80
[2024-01-24] MEDS: atenoloL 25 MG TABLET PO (05:55)
[2024-01-24 05:56] VITALS: BP 185/69; PULSE 101; TEMP 36.4; O2SAT 93
--- NOTE | 2024-01-24 05:56 | PC.NURSE ---
Addendum entered by Radha Zelaya Rosa Maria 01/24/24 06:00: notified Dr. Plasencia as well. Original Note: pt bp 185/69 administered atenolol early
[2024-01-24 06:21] VITALS: BP 158/75
[2024-01-24] MEDS: metFORMIN HCl 500 MG TABLET PO (09:49)
[2024-01-24] MEDS: Cholecalciferol (Vitamin D3) 25 MCG TABLET PO (09:49)
[2024-01-24] MEDS: Ferrous Sulfate 324 MG TABLET.DR PO (09:49)
[2024-01-24] MEDS: Losartan Potassium 50 MG TABLET PO (09:49)
[2024-01-24] MEDS: Nystatin Powder 15 GM BOTTLE 1 APPL TOPICAL (09:49)
[2024-01-24] MEDS: hydroCHLOROthiazide 12.5 MG TABLET PO (09:50)
--- NOTE | 2024-01-24 10:48 | PC.NURSE ---
[facility] daughter Tati called to let her know that her mom is on her way
[2024-01-24 11:01] VITALS: BP 158/75; PULSE 88; RESP 18; TEMP 36.6; O2SAT 97
== END 2024-01-24 11:08 | disposition skilled nursing facility (03) ==
PROVIDERS: Emergency Provider Emergency Medicine; PCP Physician Assistant
DX: S39.011A Strain of muscle, fascia and tendon of abdomen, initial encounter (principal); E11.9 Type 2 diabetes mellitus without complications; I10 Essential (primary) hypertension; X58.XXXA Exposure to other specified factors, initial encounter; Y93.9 Activity, unspecified; Y92.9 Unspecified place or not applicable; Y99.9 Unspecified external cause status; Z11.52 Encounter for screening for COVID-19
CPT/HCPCS: 0241U; 51701; 73502; 82947; 97162; 99285

== ENCOUNTER 2024-02-05 07:52 | Outpatient (AMB) | payer MEDICARE, SELFPAY ==
--- NOTE | 2024-02-05 08:01 | MHC.PC.OV ---
Vital Signs 02/05/24 08:06 Height 5 ft 1.5 in Weight 208 lb BMI 38.7 BP 142/62 H Blood Pressure Location Lt brachial Position Sitting Pulse 74 Pulse Source Pulse Oximeter Pulse Oximetry (%) 97 Oxygen Delivery Method Room Air Intake Visit Reasons: [facility] 02/02/24 Allergies gabapentin Adverse Reaction (Intermediate, Verified 02/05/24 08:16) Confusion zolpidem [Zolpidem] Adverse Reaction (Intermediate, Verified 02/05/24 08:16) CONFUSION Medication List - Last Reconciled 02/05/24 by Jas Rangel PA-C acetaminophen ER 650 mg PO Q12H 30 days atenolol 25 mg PO DAILY cholecalciferol (vitamin D3) 25 mcg PO DAILY ferrous sulfate 325 mg PO DAILY furosemide (Lasix) 20 mg PO DAILY levothyroxine 75 mcg PO QAM losartan-hydrochlorothiazide 50-12.5 mg 1 tab PO DAILY metformin 500 mg PO BID 90 days nystatin (Nystop) 1 appl topical TID omeprazole 20 mg PO DAILY 90 days RSVPreF3 antigen 2 of 2 (Arexvy Antigen Component) IM simvastatin 40 mg PO BEDTIME tizanidine 2 mg PO BEDTIME 90 days Tobacco use date assessed: 12/19/23 Fall risk assessment: No Falls in past year Last assessed Fall Risk: 02/05/24 Dental Screening Dental Screen Date: 02/05/24 Did you have a dental visit in the last 12 months?: No Did you have a dental problem in the last 6 months where you did not have access to dental care?: No Was dental information given to patient?: No HPI [facility] 02/02/24 HPI Details Patient is an 88-year-old female here today for a follow-up visit. Patient has a past medical history significant for type 2 diabetes, obesity, chronic right shoulder pain secondary to post herpetic neuralgia, hypothyroidism, hypertension. Concerns--> Patient presented to the [facility] on 01/23/2024 for sudden onset of left groin pain. There was no acute trauma though does report walking down some stairs before the left groin pain presented. She did receive x-ray of her left that showed mild arthritis. She was diagnosed with a left groin strain. She was transported to a short-term rehab ([facility]) for rehabilitation. -Currently doing well and has no more left groin pain. Ambulates with a walker for assistance. .. CHRONIC MEDICAL CONDITIONS--> .. Osteoarthritis of the knee: Has been followed by [facility] and has been getting injections in her knees .. Type 2 diabetes: Has been well controlled. Today's A1c remains below 7.0. We have decreased her metformin to 500 b.i.d and will continue this current dose.. .. Hypothyroidism: Continues on 75 mcg of levothyroxine with good effect. Most recent TSH acceptable. .. Hypertension: Blood pressure today in office slightly elevated. There are some concerns about her losartan dose. She has not been regularly monitoring blood pressure at home and asked to do so before increasing losartan dose.. [facility] History Post herpetic neuralgia Hypothyroid High cholesterol HTN (hypertension) Diabetes Surgical History History of lumbar surgery History of total right knee replacement History of bladder surgery Family History Father Throat cancer Mother Diabetes Son Substance use disorder Son Substance use disorder Social History Housing: House Alcohol intake: never Patient Tobacco Use Status: Former Tobacco user Tobacco use type: Cigarette e-Cigarette/Vaping Use: Never Used Second Hand Smoke Exposure: No service: No Current occupational status: retired Cognitive needs: Yes (walker) Hearing needs: No Vision needs: Yes (readig glasses) Questionnaire PHQ-9 Over the last 2 weeks, how often have you been bothered by any of the following problems? 1. Little interest or pleasure in doing things: several days 2. Feeling down, depressed, or hopeless: several days 3. Trouble falling or staying asleep, or sleeping too much: several days 4. Feeling tired or having little energy: several days 5. Poor appetite or overeating: not at all 6. Feeling bad about yourself - or that you are a failure or have let yourself or your family down: not at all 7. Trouble concentrating on things, such as reading the newspaper or watching television: not at all 8. Moving or speaking so slowly that other people could have noticed. Or the opposite - being so fidgety or restless that you have been moving around a lot more than usual: not at all 9. Thoughts that you would be better off or of hurting yourself in some way: not at all Total score: 4 Depression Screening Interpretation: Positive Depression Screening Follow-up: Existing condition Depression Screening Done: Yes 97062 - PHQ-9 Billing: Yes Source: Developed by Drs. Jack Castro, Chaim Travis and colleagues, with an educational armani from [employer]. Thrive Questionnaire Date Thrive assessed: 12/19/23 AUDIT C Alcohol Use Questionnaire (AUDIT-C) 1. How often do you have a drink containing alcohol?: Never Total Score: 0 Score Reviewed/Action Taken: No GUANAKITO-7 AMB Questionnaire GUANAKITO-7 Date GUANAKITO - 7 assessed: 12/19/23 Source: Developed by Drs. Jack Castro, Meeta Magana, Chaim Ramirez and colleagues, with an educational armani from [employer]. Review of Systems Const Denies headache(s) Eyes Denies loss of vision ENT Denies vertigo, Denies dizziness, Denies headache(s) and Denies sore throat Card Denies chest pain, Denies leg edema and Denies lightheadedness Resp Denies cough, Denies hemoptysis and Denies wheezing GI Denies abdominal pain, Denies melena, Denies constipation, Denies diarrhea and Denies vomiting Denies urinary frequency, Denies dysuria and Denies urinary urgency Musc Denies arthralgias, Denies joint swelling, Denies numbness and Denies tingling Neuro Denies Abnormal speech present, Denies behavioral changes, Denies vertigo, Denies dizziness, Denies headache(s), Denies loss of vision, Denies memory loss, Denies numbness and Denies tingling Psych Denies anxiety, Denies behavioral changes, Denies depression, Denies memory loss and Denies panic attacks Jovan/Lymph Denies easy bleeding and Denies easy bruising Aller/Immun Denies wheezing Physical exam (Primary Care) Vital Signs: Oxygen Delivery Method Room Air 02/05/24 08:06 BMI result Body Mass Index 38.7 Tobacco/Smoking Status: Tobacco use Status Tobacco use date assessed 12/19/23 12/19/23 08:37 Patient Tobacco Use Status Former Tobacco user 01/23/24 02:00 e-Cigarette/Vaping Use Never Used 12/19/23 08:37 Depression Screening Interpretation: Positive Depression Screening Follow-up: Existing condition Thrive Assessment: Date of Thrive Assessment Date Thrive assessed 12/19/23 12/19/23 08:37 Const General: healthy appearing, no acute distress, alert and awake Nutritional Appearance: well nourished Orientation/consciousness: oriented to person, oriented to place and oriented to time HENMT Ears: TM's normal bilaterally General nose exam: Normal nasal mucous membranes and turbinates present Eyes Conjunctivae: conjunctivae normal Sclerae: sclerae normal Pupils: Equal, round and reactive pupils present Neck Neck: Yes no lymphadenopathy and Yes no JVD Thyroid: Thyroid normal Carotids: no bruits Resp Effort & Inspection: normal respiratory effort and not tachypneic Auscultation: no crackles, no rales, no rhonchi and no wheezes Cardio Rate: regular rate Rhythm: regular rhythm Heart sounds: no murmurs and normal S1 and S2 GI Palpation (GI): Soft to palpation, nontender, no hepatomegaly and no splenomegaly Auscultation: normal bowel sounds Skin General skin exam: no rashes or lesions noted and dry skin Neuro General: oriented to person, oriented to place and oriented to time Cranial nerves: Yes Equal, round and reactive pupils present Speech: No Abnormal speech present Gait exam (Neuro): Normal gait present Motor exam (neuro): no tremor noted Extrem Right upper extremity: full ROM Left upper extremity: full ROM Right lower extremity: full ROM; no edema Left lower extremity: full ROM; no edema Psych Mental Status: mental status grossly normal Speech and movement: Normal speech and movement present Affect: normal affect Attitude: cooperative Thought process: Normal thought process present Assessment and Plan Assessment & Plan (1) Strain of left groin: Code(s): S76.212A - Strain of adductor muscle, fascia and tendon of left thigh, initial encounter Plan: Has completely resolved. As per HPI patient had left groin strain causing her severe immobility and and temporary disabled. Needed one-week in short-term rehab. Now home and doing fine. (2) DMII (diabetes mellitus, type 2): Code(s): E11.9 - Type 2 diabetes mellitus without complications Qualifiers: Diabetes mellitus correction insulin use: without correction use Diabetes mellitus complication status: without complication Qualified Code(s): E11.9 - Type 2 diabetes mellitus without complications Plan: Patient's type 2 diabetes well controlled with current dose of metformin. Goal A1c is to remain below 8.0 due to patient's age and comorbidities. (3) Hypothyroid: Code(s): E03.9 - Hypothyroidism, unspecified Qualifiers: Hypothyroidism type: unspecified Qualified Code(s): E03.9 - Hypothyroidism, unspecified Plan: Patient's most recent TSH stable. Will continue her on her current dose of levothyroxine at 75 mcg. (4) HTN (hypertension): Code(s): I10 - Essential (primary) hypertension Qualifiers: Hypertension type: unspecified Qualified Code(s): I10 - Essential (primary) hypertension Plan: Patient's blood pressure slightly elevated today in office. There is some concern about losartan dose. Advised to monitor blood pressure over the next 2 weeks at home and if consistently above 140/90 will increase losartan dose to 50 mg daily. Will continue her on current dose of blood pressure medication. Goal blood pressures to be below 140/90 (5) Obese: Code(s): E66.9 - Obesity, unspecified Qualifiers: Obesity type: due to excess calories Obesity classification: adult class 2 (BMI 35 - 39.9) Serious obesity comorbidity presence: without serious comorbidity Body mass index: BMI 38.0-38.9 Qualified Code(s): E66.09 - Other obesity due to excess calories; Z68.38 - Body mass index [BMI] 38.0-38.9, adult Plan: Patient does understand her BMI is over 30 will work on better eating habits to help reduce her weight. Patient Instructions: goal: Blood pressure to remain below 140/90 and above 100/60. Monitor blood pressure at home. Barriers: Adherence to physical activity and healthy eating habits. Coding Level of Care Code Est Pt Level 4 (90256) Diagnoses Strain of left groin S76.212A Type 2 diabetes mellitus without complication, without long-term current use of insulin E11.9 Diabetes mellitus correction insulin use: without watermaster use Diabetes mellitus complication status: without complication Hypothyroidism, unspecified type E03.9 Hypothyroidism type: unspecified Hypertension, unspecified type I10 Hypertension type: unspecified Class 2 obesity due to excess calories without serious comorbidity with body mass index (BMI) of 38.0 to 38.9 in adult E66.09; Z68.38 Obesity type: due to excess calories Obesity classification: adult class 2 (BMI 35 - 39.9) Serious obesity comorbidity presence: without serious comorbidity Body mass index: BMI 38.0-38.9
[2024-02-05 08:06] VITALS: BP 142/62; PULSE 74; O2SAT 97; BMI 38.7
== END 2024-02-05 09:15 | disposition home or self-care (01) ==
PROVIDERS: PCP Physician Assistant; Visit Provider Physician Assistant
DX: S76.212A Strain of adductor muscle, fascia and tendon of left thigh, initial encounter (principal); E11.9 Type 2 diabetes mellitus without complications; E03.9 Hypothyroidism, unspecified; I10 Essential (primary) hypertension; E66.09 Other obesity due to excess calories; Z68.38 Body mass index [BMI] 38.0-38.9, adult
CPT/HCPCS: 99214

== ENCOUNTER → 2024-02-28 23:59 | Outpatient (BNV) | payer MEDICARE, SELFPAY | PROVIDERS: PCP Internal Medicine; Visit Provider Physician Assistant | DX: G89.29 Other chronic pain (principal); R10.30 Lower abdominal pain, unspecified; M25.552 Pain in left hip | CPT/HCPCS: G0180 ==

== ENCOUNTER 2024-03-04 08:40 | Outpatient (AMB) | payer MEDICARE, SELFPAY ==
--- NOTE | 2024-03-04 08:46 | MHC.OFFVIS ---
Vital Signs 03/04/24 09:00 Height 5 ft 1.5 in Weight 208 lb BMI 38.7 Intake Visit Reasons: OV-Left knee injection- last injection 12/04/23 Intake Note: Julia an 88 year old female presents today for a follow up of left knee, last cortisone injection on 12/04/23. Patient reports that her last injection did not provide her with any relief, she is requesting to repeat injection. Allergies gabapentin Adverse Reaction (Intermediate, Verified 03/04/24 09:00) Confusion zolpidem [Zolpidem] Adverse Reaction (Intermediate, Verified 03/04/24 09:00) CONFUSION Medication List - Last Reconciled 03/04/24 by Susy Hay PA-C acetaminophen ER 650 mg PO Q12H 30 days atenolol 25 mg PO DAILY cholecalciferol (vitamin D3) 25 mcg PO DAILY ferrous sulfate 325 mg PO DAILY furosemide (Lasix) 20 mg PO DAILY levothyroxine 75 mcg PO QAM losartan-hydrochlorothiazide 50-12.5 mg 1 tab PO DAILY metformin 500 mg PO BID 90 days nystatin (Nystop) 1 appl topical TID omeprazole 20 mg PO DAILY 90 days RSVPreF3 antigen 2 of 2 (Arexvy Antigen Component) IM simvastatin 40 mg PO BEDTIME tizanidine 2 mg PO BEDTIME 90 days HPI HPI OV-Left knee injection- last injection 12/04/23: Details: 88-year-old female who returns to the office today for a follow-up of left knee pain. She had her last injection on 12/04/23 that did not provide her any relief. She would like to repeat the injection. She has a history of diabetes but is not on insulin [facility] Medical History Post herpetic neuralgia Hypothyroid High cholesterol HTN (hypertension) Diabetes Surgical History History of lumbar surgery History of total right knee replacement History of bladder surgery Family History Father Throat cancer Mother Diabetes Son Substance use disorder Son Substance use disorder Social History Housing: House Alcohol intake: never Patient Tobacco Use Status: Former Tobacco user Tobacco use type: Cigarette e-Cigarette/Vaping Use: Never Used Second Hand Smoke Exposure: No service: No Current occupational status: retired Cognitive needs: Yes (walker) Hearing needs: No Vision needs: Yes (readig glasses) Review of Systems Const All systems reviewed & are unremarkable except as noted in HPI and below Physical Exam Vital Signs: BMI result Body Mass Index 38.7 Extrem Other: Left knee skin intact, no erythema or joint effusion. Tenderness along the medial and lateral joint line. Full ROM with crepitus. Negative Eliza?s. No ligamentous laxity. NVI. Office Procedures Joint Injection/Drain Joint Injection/Drain Primary Site: left knee Prep: site was prepped using aseptic technique, ethochloride spray was applied and injection warnings given Injected: 80 mg of, DepoMedrol, with 8 mL of, 1% plain lidocaine and in the joint Approach Used: anterolateral Procedure: The patient tolerated the procedure well and there was some relief with the local anesthesia Coding 29283 - Glenohumeral/Tronchanteric Bursa/Intraarticular Procedure code (CPT) selection complete Assessment & Plan Assessment & Plan (1) Osteoarthritis of left knee: Code(s): M17.12 - Unilateral primary osteoarthritis, left knee Category: Medical Qualifiers: Osteoarthritis type: primary Qualified Code(s): M17.12 - Unilateral primary osteoarthritis, left knee Plan We discussed options today, which include steroid injection. The patient did consent to move forward with the left knee injection, which was tolerated well. I recommended rest, ice, and elevation and OTC anti-inflammatories as needed for discomfort. If symptoms persist or worsen over the next 6-8 weeks, patient will contact the office, otherwise follow-up as needed. Patient Instructions: Scribed for Susy Hay PA-C, by Timothy Daniels medical typist, on 03/04/2024 at 8:45 AM EST.? I, Susy Hay PA-C, have personally reviewed and agree with the information entered by the scribe. Coding Level of Care Code Est Pt Level 3 (22526) Diagnoses Primary osteoarthritis of left knee M17.12 Osteoarthritis type: primary CPT Codes Coding - Joint 7: 08474 - Glenohumeral/Tronchanteric Bursa/Intraarticular ([id number])
[2024-03-04 09:00] VITALS: BMI 38.7
== END 2024-03-04 10:33 | disposition home or self-care (01) ==
PROVIDERS: PCP Nurse Practitioner Family; Visit Provider Physician Assistant
DX: M17.12 Unilateral primary osteoarthritis, left knee (principal)
CPT/HCPCS: 20610; 99213

== ENCOUNTER → 2024-03-04 08:40 | Outpatient (BNVA) | payer MEDICARE, SELFPAY | PROVIDERS: PCP Nurse Practitioner Family; Visit Provider Physician Assistant | DX: M17.12 Unilateral primary osteoarthritis, left knee (principal) | CPT/HCPCS: 20610; 99212; J1010 ==

== ENCOUNTER 2024-06-17 08:33 | Outpatient (AMB) | payer MEDICARE, SELFPAY ==
--- NOTE | 2024-06-17 08:36 | MHC.OFFVIS ---
Intake Visit Reasons: LT knee injection - last injection 03/04/24 Intake Note: Julia an 88 year old female presents today for a follow up of left knee, last cortisone injection on 03/04/24. Patient reports injection provided her with some relief. Allergies gabapentin Adverse Reaction (Intermediate, Verified 03/04/24 09:00) Confusion zolpidem [Zolpidem] Adverse Reaction (Intermediate, Verified 03/04/24 09:00) CONFUSION Medication List - Last Reconciled 06/17/24 by Susy Hay PA-C acetaminophen ER 650 mg PO Q12H 30 days atenolol 25 mg PO DAILY celecoxib (Celebrex) 200 mg PO BID 30 days cholecalciferol (vitamin D3) 25 mcg PO DAILY ferrous sulfate 325 mg PO DAILY furosemide (Lasix) 20 mg PO DAILY levothyroxine 75 mcg PO QAM losartan-hydrochlorothiazide 50-12.5 mg 1 tab PO DAILY metformin 500 mg PO BID 90 days nystatin (Nystop) 1 appl topical TID omeprazole 20 mg PO DAILY 90 days RSVPreF3 antigen 2 of 2 (Arexvy Antigen Component) IM simvastatin 40 mg PO BEDTIME tizanidine 2 mg PO BEDTIME 90 days HPI HPI LT knee injection - last injection 03/04/24: Details: 88-year-old female who returns to the office today for a follow-up of left knee pain. She had her last injection on 03/04/24 which provided her some relief. She would like to repeat the injection. She has a history of diabetes. [facility] Medical History Post herpetic neuralgia Hypothyroid High cholesterol HTN (hypertension) Diabetes Surgical History History of lumbar surgery History of total right knee replacement History of bladder surgery Family History Father Throat cancer Mother Diabetes Son Substance use disorder Son Substance use disorder Social History Housing: House Alcohol intake: never Patient Tobacco Use Status: Former Tobacco user Tobacco use type: Cigarette e-Cigarette/Vaping Use: Never Used Second Hand Smoke Exposure: No service: No Current occupational status: retired Cognitive needs: Yes (walker) Hearing needs: No Vision needs: Yes (readig glasses) Review of Systems Const All systems reviewed & are unremarkable except as noted in HPI and below Physical Exam Extrem Other: Left knee skin intact, no erythema or joint effusion. Tenderness along the medial and lateral joint line. Full ROM with crepitus. Negative Eliza?s. No ligamentous laxity. NVI. Office Procedures Joint Injection/Aspiration Joint Injection/Aspiration Primary Site: left knee Prep: site was prepped using aseptic technique, ethochloride spray was applied and injection warnings given Injected: 80 mg of, DepoMedrol, with 8 mL of, 1% plain lidocaine and in the joint Approach Used: anterolateral Procedure: The patient tolerated the procedure well and there was some relief with the local anesthesia Coding 38691 - Glenohumeral/Tronchanteric Bursa/Intraarticular Procedure code (CPT) selection complete Assessment & Plan Assessment & Plan (1) Osteoarthritis of left knee: Code(s): M17.12 - Unilateral primary osteoarthritis, left knee Category: Medical Qualifiers: Osteoarthritis type: primary Qualified Code(s): M17.12 - Unilateral primary osteoarthritis, left knee Plan We discussed options today, which include steroid injection. The patient did consent to move forward with the left knee injection, which was tolerated well. I recommended rest, ice, and elevation and OTC anti-inflammatories as needed for discomfort. If symptoms persist or worsen over the next 6-8 weeks, patient will contact the office, otherwise follow-up as needed. ? Patient Instructions: Scribed for Susy Hay PA-C, by Timothy Daniels medical record administrator, on 06/17/2024 at 8:45 AM EST.? I, Susy Hay PA-C, have personally reviewed and agree with the information entered by the scribe. Coding Level of Care Code Est Pt Level 3 (20774) Complex EM visit Add On G2211 Diagnoses Primary osteoarthritis of left knee M17.12 Osteoarthritis type: primary CPT Codes Coding - Joint 7: 68303 - Glenohumeral/Tronchanteric Bursa/Intraarticular ([id number])
== END 2024-06-17 09:08 | disposition home or self-care (01) ==
PROVIDERS: PCP Physician Assistant; Visit Provider Physician Assistant
DX: M17.12 Unilateral primary osteoarthritis, left knee (principal)
CPT/HCPCS: 20610; 99213

== ENCOUNTER → 2024-06-17 08:33 | Outpatient (BNVA) | payer MEDICARE, SELFPAY | PROVIDERS: PCP Physician Assistant; Visit Provider Physician Assistant | DX: M17.12 Unilateral primary osteoarthritis, left knee (principal) | CPT/HCPCS: 20610; 99212; J1010 ==

== ENCOUNTER 2024-09-23 08:46 | Outpatient (AMB) | payer MEDICARE, SELFPAY ==
[2024-09-23 08:54] VITALS: BMI 38.7
--- NOTE | 2024-09-23 08:54 | A.OFFVIS_ITS ---
Vital Signs 09/23/24 08:54 Height 5 ft 1.5 in Weight 208 lb BMI 38.7 Intake Visit Reasons: LT knee injection - last injection 06/17/24 Intake Note: Julia is an 89 year old female who presents today for a follow up of left knee OA, last injection 06/17/24. Patient reports last injection provided her with little relief. She is requesting to repeat injection. Allergies gabapentin Adverse Reaction (Intermediate, Verified 09/23/24 08:55) Confusion zolpidem [Zolpidem] Adverse Reaction (Intermediate, Verified 09/23/24 08:55) CONFUSION Medication List - Last Reconciled 09/23/24 by Susy Hay PA-C acetaminophen ER 650 mg PO Q12H 30 days atenolol 25 mg PO DAILY celecoxib (Celebrex) 200 mg PO BID 30 days cholecalciferol (vitamin D3) 25 mcg PO DAILY ferrous sulfate 325 mg PO DAILY furosemide (Lasix) 20 mg PO DAILY levothyroxine 75 mcg PO QAM losartan-hydrochlorothiazide 50-12.5 mg 1 tab PO DAILY metformin 500 mg PO BID 90 days nystatin (Nystop) 1 appl topical TID omeprazole 20 mg PO DAILY 90 days RSVPreF3 antigen 2 of 2 (Arexvy Antigen Component) IM simvastatin 40 mg PO BEDTIME tizanidine 2 mg PO BEDTIME 90 days HPI HPI LT knee injection - last injection 06/17/24: Details: 89-year-old female returns to the office today for a follow-up left knee pain status post injection on June 17. She had significant relief up to recently where she developed increased pain activities. [facility] Medical History Post herpetic neuralgia Hypothyroid High cholesterol HTN (hypertension) Diabetes Surgical History History of lumbar surgery History of total right knee replacement History of bladder surgery Family History Father Throat cancer Mother Diabetes Son Substance use disorder Son Substance use disorder Social History Housing: House Alcohol intake: never Patient Tobacco Use Status: Former Tobacco user Tobacco use type: Cigarette e-Cigarette/Vaping Use: Never Used Second Hand Smoke Exposure: No service: No Current occupational status: retired Cognitive needs: Yes (walker) Hearing needs: No Vision needs: Yes (readig glasses) Review of Systems Const All systems reviewed & are unremarkable except as noted in HPI and below Physical Exam Vital Signs: BMI result Body Mass Index 38.7 Const General: cooperative and no acute distress Orientation/consciousness: patient oriented x3 Resp Effort & Inspection: normal respiratory effort and able to speak in complete sentences Cardio Peripheral pulses: Peripheral pulses 2+ throughout Neuro General: patient oriented x3 Extrem Other: Left knee skin intact, no erythema or joint effusion. Tenderness along the medial and lateral joint line. Full ROM with crepitus. Negative Eliza?s. No ligamentous laxity. NVI. Office Procedures AMB Joint Injection/Aspiration Joint Injection/Aspiration Primary Site: left knee Prep: site was prepped using aseptic technique, ethochloride spray was applied and injection warnings given Injected: 80 mg of, DepoMedrol, with 8 mL of, 1% plain lidocaine and in the joint Approach Used: anterolateral Procedure: The patient tolerated the procedure well and there was some relief with the local anesthesia Coding 80494 - Glenohumeral/Tronchanteric Bursa/Intraarticular Procedure code (CPT) selection complete Assessment & Plan Assessment & Plan (1) Osteoarthritis of left knee: Code(s): M17.12 - Unilateral primary osteoarthritis, left knee Category: Medical Qualifiers: Osteoarthritis type: primary Qualified Code(s): M17.12 - Unilateral primary osteoarthritis, left knee Plan We discussed options today, which include steroid injection. The patient did consent to move forward with the left knee injection, which was tolerated well. I recommended rest, ice, and elevation and OTC anti-inflammatories as needed for discomfort. If symptoms persist or worsen over the next 6-8 weeks, patient will contact the office, otherwise follow-up as needed. ? Coding Level of Care Code Est Pt Level 3 (91808) Complex EM visit Add On G2211 Diagnoses Primary osteoarthritis of left knee M17.12 Osteoarthritis type: primary CPT Codes Coding - Joint 7: 25245 - Glenohumeral/Tronchanteric Bursa/Intraarticular ([id number])
--- OUTSIDE RECORDS SUMMARY | 2024-09-23 09:13 | XMS_ITS ---
Author Organization [facility] Address [address] [place] [phone] Care Team Providers Care Air Control Electronics Operator Name Role Phone Jas Rangel Primary Care Provider Unavailab Praveen [place] Unavailable [phone] REASON FOR VISIT ing nail RT Encounters Encounter Location Date Provider Diagnosis [address] [address] 08/19/2024 Praveen Shearer Plan Of Treatment Next Appt Details Provider Name:Praveen Shearer , 11/22/2024 10:00:00 AM, [address] [place] [address], [phone], Progress Notes * Julia RESENDIZ MDOB:1935 ([age] yo F)Acc No.[id number]:08/19/2024 Patient:?Julia RESENDIZ :1935???Age:88 Y???Sex:Female Address:[address] [place] [address], [phone] * true * Date:? Generated for Printi calli/Jani/eTransmitting on:?09/23/2024 09:13 AM EST
--- OUTSIDE RECORDS SUMMARY | 2024-09-23 09:13 | XMS_ITS ---
Author Organization [facility] Address [address] [place] [phone] Care Team Providers Care Warehouse Administrator Name Role Phone Jas Rangel Primary Care Provider Unavailab Praveen [place] Unavailable [phone] Loan Wiley [phone] REASON FOR VISIT Seen Sooner Encounters Encounter Location Date Provider Diagnosis [address] [phone] 08/22/2024 Loan Wiley Plan Of Treatment Next Appt Details Provider Name:Praveen Shearer , 11/22/2024 10:00:00 AM, [address] [place] [address], [phone], Progress Notes * Julia RESENDIZ MDOB:1935 ([age] yo F)Acc No.[id number]:08/22/2024 Progress Note Patient:?MARTÍN Julia Shetty Provider:?Loan Wiley DPM :1935???Age:88 Y???Sex:Female D ate:08/22/2024 Address:[address] [place] [id number] Pcp:Jas Rangel Subjective: * Chief Complaints: * ???1. Seen Sooner. * Medical History:? Objective: * Vitals:? Assessment: Plan: * Treatment: * Images: * The named appointment provid er may or may not be the originator of this progress note, and it is not deemed complete until electronically signed by the appointment provider. Sign off status: Pending * Provider:?Loan Wiley DPM Date:?01/2024 Generated for Kianna mccurdy/Jani/Chip on:?09/23/2024 09:12 AM EST
--- OUTSIDE RECORDS SUMMARY | 2024-09-23 09:13 | XMS_ITS | Patient Health Record ---
[facility] Address [address] [place] [address] Care Team Providers Care Supervisor Industrial Arts Education Name Role Phone Jas Rangel Primary Care Provider Unavailab sunshine Shearer Praveen Unavailable [phone] Loan Wiley Unavailable [phone] Allergies Allergen (clinical drug ingredient) Drug/Non Drug Allergy documented on EMR Reaction Allergy Type Onset Date Status zolpidem Osmany loopy/ out of it Drug Allergy Active Reason For Referral No Information Medications Medication SIG (Take, Route, Frequency, Duration) Notes Start Date End Date Status Meloxicam 15 MG 1 tablet Orally Once a day for 30 day(s) Active Simvastatin 40 MG as directed Orally Once a day Active Thyroid Active Tylenol Active Eucerin . as directed Externally Apply Twice a day to Feet for 30 days 03/13/2015 Active Levothyroxine Sodium 100 MCG 1 tablet in the morning on an empty stomach Orally Once a day for 30 day(s) Active Losartan Potassium 50-1.5 mg once a day Active metFORMIN HCl 500 MG 4 tab Orally AM /PM Active Aspirin Adult Low Strength Active Atenolol 25 MG 1 tablet Orally Once a day Not-Taking Ammonium Lactate 12 % 1 application Externally to affected areas of dry skin to feet except for between the toes Twice a day for 30 days Active Cephalexin 500 MG 1 capsule Orally every 6 hrs for 5 day(s) Active Tylenol Not-Taking Cranberry Active Immunizations Vaccine Route Administration Date Status Comme nts COVID-19 Pfizer BioNTech Vaccine Unknown 07/20/2021 Administered 1st 10/29/20 2nd 11/19/20 Influenza Unknown 05/23/2016 Administered Influenza Unknown 08/08/2017 Administered Influenza Unknown 05/29/2018 Administered Influenza Unknown 05/29/2019 Administered Influenza Unknown 05/20/2022 Administered Social History Tobacco Use: Social History Observation Description Date Details (start date - stop date) Former Smoker NA - NA Tobacco Use/Smoking Question Answer Notes Are you a: former smoker Additional Findings: Tobacco Non-User Current no n-smoker Alcohol Screen Question Answer Notes Did you have a drink containing alcohol in the p ast year? No Points 0 Interpretation Negative Tobacco use other than smoking: Question Answer Notes Are you an other tobacco user? No Problems Problem Type SNOMED Code ICD Code Onset Dates Problem Status W/U Status Risk Notes Problem Type 2 diabetes mellitus with peripheral angiopathy (206238484) Type 2 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 gangrene (E11.51) Active confirmed Q7(A), Q8(2B), Q9(1B,2C) Vital Signs Height 5 ft 9 in in 08/20/2024 Weight 210 lbs 08/20/2024 BMI 31.01 kg/m2 08/20/2024 Procedures Procedure Date Ordered Date Performed Result Body Sit e 47281-XGFVWDJ NAIL, 6 OR MORE 10/06/2023 N/A 25298-Urobgyuv Plate 10/06/2023 N/A 13682-Wysmezue Plate Each Additional 10/06/2023 N/A 48301-AFAZ SKIN LESIONS, 2 TO 4 10/06/2023 N/A 09712-OFRGHYW NAIL, 6 OR MORE 03/08/2024 N/A 57848-Pdcibivw Plate 03/08/2024 N/A 43458-Hywnnckc Plate Each Additional 03/08/2024 N/A 67992-PCWU SKIN LESIONS, 2 TO 4 03/08/2024 N/A 85963-BAPSCUB NAIL, 6 OR MORE 08/20/2024 N/A 40675-Hibirjhw Plate 08/20/2024 N/A 43433-Zxftnedu Plate Each Additional 08/20/2024 N/A 20754-ORCF SKIN LESIONS, 2 TO 4 08/20/2024 N/A Encounters Encounter Location Date [facility] [address] [place] [address] 10/06/2023 Praveen Shearer Type 2 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 gangrene E11.51 ; Tinea unguium B35.1 ; Pain in right toe(s) M79.674 ; Pain in left toe(s) M79.675 ; Ingrown nail L60.0 ; Other hammer toe(s) (acquired), right foot M20.41 and Other hammer toe(s) (acquired), left foot M20.[address] [address] 03/08/2024 Praveen Shearer Type 2 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 gangrene E11.51 ; Tinea unguium B35.1 ; Pain in right toe(s) M79.674 ; Pain in left toe(s) M79.675 and Ingrown nail L60.[address] [address] 08/20/2024 Praveen Shearer Type 2 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 gangrene E11.51 ; Tinea unguium B35.1 ; Pain in right toe(s) M79.674 ; Pain in left toe(s) M79.675 ; Ingrown nail L60.0 and Xerosis of skin L85.[address] [address] 08/19/2024 Praveenoziel BallesterosManfred Assessments Encounter Date Diagnosis (ICD Code) Assessment Notes Treatment Notes Treatment Clinical Notes Section Notes 10/06/2023 Type 2 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 gangrene (ICD-10 - E11.51) 10/06/2023 Tinea unguium (ICD-10 - B35.1) 03/08/2024 Type 2 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 gangrene (ICD-10 - E11.51) 03/08/2024 Tinea unguium (ICD-10 - B35.1) 08/20/2024 Type 2 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 gangrene (ICD-10 - E11.51) Q7(A), Q8(2B), Q9(1B,2C) 08/20/2024 Tinea unguium (ICD-10 - B35.1) 03/08/2024 Pain in right toe(s) (ICD-10 - M79.674) 10/06/2023 Pain in right toe(s) (ICD-10 - M79.674) 08/20/2024 Pain in right toe(s) (ICD-10 - M79.674) 10/06/2023 Pain in left toe(s) (ICD-10 - M79.675) 03/08/2024 Pain in left toe(s) (ICD-10 - M79.675) 08/20/2024 Pain in left toe(s) (ICD-10 - M79.675) 03/08/2024 Ingrown nail (ICD-10 - L60.0) 10/06/2023 Ingrown nail (ICD-10 - L60.0) 08/20/2024 Ingrown nail (ICD-10 - L60.0) 10/06/2023 Other hammer toe(s) (acquired), right foot (ICD-10 - M20.41) Response to treatment,Impro vement 08/20/2024 Xerosis of skin (ICD-10 - L85.3) 10/06/2023 Other hammer toe(s) (acquired), left foot (ICD-10 - M20.42) Response to treatment,Impro vement Plan Of Treatment Pending Test Test Name Order Date Hemoglobin A1c 12/05/2014 X ray : Foot, left 3V 06/21/2012 92247-NLHGMLM NAIL, 6 OR MORE 04/09/2013 12067-QMBEXDF NAIL, 6 OR MORE 07/09/2013 73506-FQFYOQL NAIL, 6 OR MORE 11/13/2012 00117-GRGFZGE NAIL, 6 OR MORE 01/18/2013 28705-LKDBUBP NAIL, 6 OR MORE 11/12/2013 63229-UWWURYJ NAIL, 6 OR MORE 02/14/2014 42947-KUFDMQB NAIL, 6 OR MORE 05/20/2014 88724-FIEJCSF NAIL, 6 OR MORE 03/13/2015 27024-WOCFOOV NAIL, 6 OR MORE 08/19/2014 58424-OZGJCKF NAIL, 6 OR MORE 12/05/2014 10389-BTRGTBJ NAIL, 6 OR MORE 09/04/2015 39964-DTWPHNU NAIL, 6 OR MORE 06/12/2015 10619-RVEDNXD NAIL, 6 OR MORE 03/14/2017 42831-RTJWMYT NAIL, 6 OR MORE 05/26/2017 67820-ZQHERHO NAIL, 6 OR MORE 09/19/2017 14047-KKCKBDN NAIL, 6 OR MORE 12/12/2017 74647-TJPSGWH NAIL, 6 OR MORE 03/02/2018 87203-HXJCDYR NAIL, 6 OR MORE 05/04/2018 57690-UEGRGGG NAIL, 6 OR MORE 07/27/2018 11262-FQQSOQD NAIL, 6 OR MORE 10/12/2018 95099-AZKOCPX NAIL, 6 OR MORE 01/01/2019 75620-NQMLHBE NAIL, 6 OR MORE 03/12/2019 66429-SQDCOGA NAIL, 6 OR MORE 08/02/2019 75217-SKWEPKI NAIL, 6 OR MORE 05/01/2020 58545-QQYJAFT NAIL, 6 OR MORE 09/25/2020 33056-QMWFTTN NAIL, 6 OR MORE 08/24/2021 50779-QZJRKTS NAIL, 6 OR MORE 11/30/2021 70284-SHZSQNB NAIL, 6 OR MORE 11/18/2022 19528-JBJGEYL NAIL, 6 OR MORE 03/24/2023 47982-JQQRGSY NAIL, 6 OR MORE 10/06/2023 84214-YUFGNOE NAIL, 6 OR MORE 03/08/2024 46666-JILFDOM NAIL, 6 OR MORE 08/20/2024 35588-Cdztbgqc Plate 08/20/2024 38821-Hmplggdm Plate 03/08/2024 33243-Rphilfcj Plate 08/02/2019 74062-Tlwdscvu Plate 10/06/2023 96707-Obuidpwn Plate 03/24/2023 79142-Rmtpekkn Plate 11/18/2022 86429-Ezoromke Plate 11/30/2021 18933-Bvlkpppd Plate 09/25/2020 72729-Tqqdurmy Plate 08/24/2021 09005-Apdllabb Plate 05/01/2020 83498-Boarugep Plate 03/12/2019 02537-Lfvgeryy Plate 01/01/2019 17052-Uyjjtuzh Plate 07/27/2018 26248-Uzqmxktd Plate 10/12/2018 83581-Veibhcmx Plate 12/12/2017 13841-Fczczzok Plate 03/02/2018 98310-Kqnyuquh Plate 05/26/2017 33566-Qywgykfy Plate 09/19/2017 73846-Bhsptrid Plate 06/12/2015 67845-Rshsdxwm Plate 11/13/2012 82291-Fldmraui Plate 03/14/2017 14816-Zuyqyseo Plate 09/04/2015 10209-Ltgrruyg Plate 12/05/2014 75573-Xxhlxxpr Plate 08/19/2014 90259-Gokibrum Plate 03/13/2015 49053-Tjkgndbq Plate 05/20/2014 78688-Qtmgcolg Plate 02/14/2014 45268-Tgzwkkii Plate 11/12/2013 75127-Bwgvpmvr Plate 01/18/2013 19712-Ckwsptrl Plate 07/09/2013 66332-Ksrnwugj Plate Each Additional 60488-Lfphvxpt Plate Each Additional 33613-Fulalxcq Plate Each Additional 85872-Bouuceha Plate Each Additional 85793-Mdrgolod Plate Each Additional 10/2013 06379-Sizeblsf Plate Each Additional 13778-Pzgudhkg Plate Each Additional 10/2013 07072-Wvrgvpcg Plate Each Additional 93547-Jpyplbiw Plate Each Additional 71782-Zykxswsb Plate Each Additional 04824-Hixogngt Plate Each Additional 76078-Mjfgzafw Plate Each Additional 03780-Edjnpgkf Plate Each Additional 10/2017 25768-Ybjchhhm Plate Each Additional 04/2017 58582-Hfayprst Plate Each Additional 33216-Ewbnhsyk Plate Each Additional 54925-Fvtyfyvo Plate Each Additional 05/2018 55293-Ompzwlnj Plate Each Additional 43944-Htfvgecr Plate Each Additional 92283-Zycqrxnf Plate Each Additional 98584-Gmvgbmfc Plate Each Additional 46439-Vyslxniv Plate Each Additional 04/2021 92649-Zbhlkokx Plate Each Additional 69328-Rtwhnjmn Plate Each Additional 11/2022 31261-Meukwlld Plate Each Additional 03/2023 67712-Hzkqnvne Plate Each Additional 88919-Jkfhwbca Plate Each Additional 78471-Pxtplmop Plate Each Additional 11/2023 08056 I&D ABSCESS- SIMPLE,SINGLE 021 86639-KWMN SKIN LESIONS, 2 TO 4 08/20/20 24 18056-QVEE SKIN LESIONS, 2 TO 4 03/08/20 24 33601-QLQQ SKIN LESIONS, 2 TO 4 10/06/19 24 02741-GTIK SKIN LESIONS, 2 TO 4 03/24/20 23 44419-DLDQ SKIN LESIONS, 2 TO 4 11/19/19 23 61268,U1004-KGQ TENDON SHEATH/LIGAMENT 0 11/13/2012 60854,F8413-IPC TENDON SHEATH/LIGAMENT 1 09/30/2011 32127,V9402-DLM TENDON SHEATH/LIGAMENT 0 11/06/2012 Next Appt Details Provider Name:Praveen Shearer , 11/22/2024 10:00:00 AM, [address] [place] [address], [phone], Insurance Providers Payer Name Payer Address Payer Phone Subscriber Number Group Number Insured Name Patient Relationship to Insured Coverage Start Date Coverage End Date [employer] [address] [place] [address] [phone] [id number] Julia Resendiz Self - patient is the insured Medical (General) History Medical History History ICD Code hypertension joint implants/screws thyroid disorder cholesterol type II diabetes Surgical History Surgery Date(Month/Year) knee replacement, right 05/2011 Hospitalization History Reason Date(Month/Year) shingles 11/2019 [facility] shoulder injury 02/21/18
--- OUTSIDE RECORDS SUMMARY | 2024-09-23 09:13 | XMS_ITS ---
[facility] Address [address] [place] [address] Care Team Providers Care Senior Materials Scientist Name Role Phone Jas Rangel Primary Care Provider Unavailab Praveen Jackson Unavailable [phone] Allergies Allergen (clinical drug ingredient) Drug/Non Drug Allergy documented on EMR Reaction Allergy Type Onset Date Status zolpidem Ambien loopy/ out of it Drug Allergy Active REASON FOR VISIT At Risk Footcare, Painful Nail(s) aggravated by shoes and causing difficulty standing/walking, Ingrown nail(s), Skin problem(s) Medications Medication SIG (Take, Route, Frequency, Duration) Notes Start Date End Date Status Eucerin . as directed Externally Apply Twice a day to Feet for 30 days 03/13/2015 Active Aspirin Adult Low Strength Active Ammonium Lactate 12 % 1 application Externally to affected areas of dry skin to feet except for between the toes Twice a day for 30 days Active Cephalexin 500 MG 1 capsule Orally every 6 hrs for 5 day(s) Active Cranberry Active Simvastatin 40 MG as directed Orally Once a day Active Thyroid Active Tylenol Active Atenolol 25 MG 1 tablet Orally Once a day Not-Taking Tylenol Not-Taking Meloxicam 15 MG 1 tablet Orally Once a day for 30 day(s) Active Levothyroxine Sodium 100 MCG 1 tablet in the morning on an empty stomach Orally Once a day for 30 day(s) Active Losartan Potassium 50-1.5 mg once a day Active metFORMIN HCl 500 MG 4 tab Orally AM /PM Active Social History Tobacco Use: Social History Observation [...] Are you an other tobacco user? No Vital Signs Height 5 ft 9 in in 08/20/2024 Weight 210 lbs 08/20/2024 BMI 31.01 kg/m2 08/20/2024 Procedures Procedure Date Ordered Date Performed Result Body Sit e 46326-QGJZPBY NAIL, 6 OR MORE 08/20/2024 N/A 53930-Mvrucbeg Plate 08/20/2024 N/A 47671-Afwnpinl Plate Each Additional 08/20/2024 N/A 23320-VPKQ SKIN LESIONS, 2 TO 4 08/20/2024 N/A Encounters Encounter Location Date Provider Diagnosis [facility] [address] [place] [address] 08/20/2024 Praveen Shearer Type 2 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 gangrene E11.51 ; Tinea unguium B35.1 ; Pain in right toe(s) M79.674 ; Pain in left toe(s) M79.675 ; Ingrown nail L60.0 and Xerosis of skin L85.3 Assessments Encounter Date Diagnosis (ICD Code) Assessment Notes Treatment Notes Treatment Clinical Notes Section Notes 08/20/2024 Type 2 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 gangrene (ICD-10 - E11.51) Q7(A), Q8(2B), Q9(1B,2C) 08/20/2024 Tinea unguium (ICD-10 - B35.1) 08/20/2024 Pain in right toe(s) (ICD-10 - M79.674) 08/20/2024 Pain in left toe(s) (ICD-10 - M79.675) 08/20/2024 Ingrown nail (ICD-10 - L60.0) 08/20/2024 Xerosis of skin (ICD-10 - L85.3) Plan Of Treatment Medication Medication Name Sig Start Date Stop Date Notes Ammonium Lactate 12 % 1 application Exte rnally to affected areas of dry skin to feet except for between the toes Twice a day for 30 days Pending Test Test Name Order Date 38742-HMFETSW NAIL, 6 OR MORE 08/20/2024 53932-Mvyldawj Plate 08/20/2024 93441-Huxebxrj Plate Each Additional 11/2023 84767-KMCF SKIN LESIONS, 2 TO 4 08/20/20 24 Next Appt Details Follow Up: prn, Reason: Provider Name:Praveen Shearer , 11/22/2024 10:00:00 AM, [address] [place], [address], Procedure Notes * Category Sub-Category Detail Notes Nail Avulsion Procedure A fine sterile e levator was placed between the eponychium, nail fold, and nail plate to separate the the structures. A sterile nail splitter, and/or sterile 316 blade, was then used to longitudinally section the nail along its entire length through the eponychium to the area under the nail fold. The offending portion of each nail was from the nail bed with a rolling action and then removed with a hemostat. No underlying bone was identified. There was minimal bleeding as hemostasis was achieved through use of either a digital tournaquet or the aforementioned local with epinephrine. A bacitracin sterile dressing was applied. Local wound aftercare instructions were discussed and dispensed. The patient was informed of both conservative and future surgical procedures to prevent recurrence (48775/32), DIABETES: Pt was advised as to the risk of delayed or nonhealing due to diabetes. Pt is to call the office with any questions, concerns, or complications Anesthesia was accomplished TOP ICALLY with Lidocaine Hydrochloride Jelly 2 percent, to each toe Location Lateral nail border, TA, T5 Debride Nail 6-10 Nail debridement Performance o f this nail treatment by a nonprofessional would put this patients foot and overall health at risk. Therefore, debridement to affected nail(s), as described in exam, was performed extensively to reduce/remove overall nail length, girth, thickness, subungual debris, and necrotic tissue, by manual and/or electrical means through the use of a nail nipper and/or dremel-type lens grinder, to a more viable healthy nail plate or bed tissue 6-10 nails in total. Silver nitrate was used for any petechial bleeding as necessary. Definitive antifungal treatment options, both pharmaceutical and surgical, have been reviewed and discussed with the patient. The patient solely prefers the use of intermittent/as needed professional debridement services for their nail condition and understands the need for additional periodic treatments to maintain effectiveness in symptomatic relief - 64674 Keratoma Treatment Parring or Cutting o f Benign Hyperkeratotic Lesion(s) (-56) 2-4 Lesions - The Benign hyperkeratotic lesions, ( 3) in total, locations as stated and described in exam, were pared, and/or cut utilizing a sterile 15 blade, tissue nippers, and/or power dremel instrumentation - 27767, Q8 Progress Notes * Julia RESENDIZ MDOB:1935 ([age] yo F)Acc No.[id number]:08/20/2024 Progress Note Patient:?Julia RESENDIZ Provider:?Praveen Shearer DPM :1935???Age:88 Y???Sex:Female D ate:08/20/2024 Address:[address] [place], [place] [id number] Pcp:Jas Rangel Subjective: * Chief Complaints: * ???At Risk FootcarePainful N ail(s) aggravated by shoes and causing difficulty standing/walkingIngrown nail(s)Skin problem(s) * HPI: ???At Risk footcare:?Pt States Last PCP Visit:?Date?07/02/2024 ?Misc?Patient accompanied by, Daughter, Jasmine.?Skin problems:?Nature:?dryness , scaling.?Location:?B/L .?Duration:?several days.?Course:?worse.? * ROS:?General/Constitutional:?Nausea?denies.?Vomiting?denies.?Hunger Thirst?denies.?Loss appetite?denies.?Chills?denies.?Fatigue?denies.?Fever?denies.?Night Sweats?denies.?Unexplained weight loss?denies.?Ophthalmologic:?Blurred vision?denies.?Red eye?denies.?HEENTM:?Dentures?denies.?Dizziness?denies.?Glasses/contacts?admits.?Retinopathy?de nies.?Blurred/double vision?denies.?TMJ?denies.?Discharge/drainage?denies.?Implants?denies.?Hard of hearing denies.?Difficulty chewing/swallowing/speaking?denies.?Nose bleeds?denies.?Sore mouth?denies.?Swollen glands?denies.?Respiratory:?On Oxygen?denies.?Pneumonia/pleurisy?denies.?Bronchitis?denies.?Emphysema?denies.?C oughing?denies.?Cough blood?denies.?Shortness of breath?denies.?Wheezing?denies.?Cardiovascular:?Pacemaker?denies.?MVP?denies.?WPW?denies.?CHF?denies.?Heart attack?denies.?Septal defect?denies.?Rapid beat?denies.?Chest pain ?denies.?Atrial Fib.?denies.?Murmur/Palpitations?denies.?Gastrointestinal:?Hemorrhoids?denies.?Stomach/Abdominal pain?denies.?Dark blood stool?denies.?Irritable bowel ?denies.?Constipation?denies.?Diarrhea?denies.?Vomiting?denies.?Hematology:?Swelling?admits.?Bruising?admits, on aspirin.?Bleeding problem?admits, on anticoagulants.?Genitourinary:?Blood urine?denies.?Frequent/Painfu/urination/bladder control?denies.?Kidney stones?denies.?Infection (UTI)?denies.?Nephropathy?denies.?Musculoskeletal:?Hammertoes?admits.?Bunions?denies.?Scoliosis/kyphosis?denies.?Muscle cramps / walking?denies.?Generalized aches and pains?denies.?Weakness?denies.?Integ.:?[place]?denies.?Scars?denies.?Corns/calluses?admits.?Ingrown nails?admits.?Painful nails?admits.?Rashes?denies.?Neurologic:?Difficulty sleeping?admits.?Bipolar?denies.?Brain disorder?denies.?Balance trouble?denies.?Confusion?denies.?Fainting/blackouts?denies.?Headache?denies.?Tr emors?denies.? * Medical History:? * Surgical History:?knee repla wanda, right 05/2011 * Hospitalization/Major Diagno stic Procedure:?[facility] shoulder injury 02/21/18shingles 11/2019 * Family History:?Mother: dece ased, diagnosed with Diabetic - NIDDM.?Father: , diagnosed with Other malignant neoplasm of unspecified site.? * Social History:?Tobacco Use:?Tobacco Use/Smoking?Are you a:?former smoker ?Additional Findings: Tobacco Non-User?Current non-smoker ?Tobacco use other than smoking?Are you an other tobacco user??No ???Drugs/Alcohol:?Drugs?Have you used drugs other than those for medical reasons in the past 12 months??No ?Alcohol Screen?Did you have a drink containing alcohol in the past year??No ?Points?0 ?Interpretation?Negative ???Miscellaneous:?Caffeine: yes, frequency:Decafe. ?Children: yes, 8. ?Exercise: no. ?Marital status: . 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 * Medications:?TakingAspirin A dult Low Strength Cephalexin 500 MG Capsule 1 capsule Orally every 6 hrs Cranberry Eucerin . Cream as directed Externally Apply Twice a day to Feet Levothyroxine Sodium 100 MCG Tablet 1 tablet in the morning on an empty stomach Orally Once a day Losartan Potassium , Notes to Pharmacist: 50-1.5 mg once a daymetFORMIN HCl 500 MG Tablet 4 tab Orally AM /PM Meloxicam 15 MG Tablet 1 tablet Orally Once a day Simvastatin 40 MG Tablet as directed Orally Once a day Thyroid Tylenol Taking Aspirin Adult Low Strength Taking Cephalexin 500 MG Capsule 1 capsule Orally every 6 hrs Taking Cranberry Taking Eucerin . Cream as directed Externally Apply Twice a day to Feet Taking Levothyroxine Sodium 100 MCG Tablet 1 tablet in the morning on an empty stomach Orally Once a day Taking Losartan Potassium , Notes to Pharmacist: 50-1.5 mg once a dayTaking metFORMIN HCl 500 MG Tablet 4 tab Orally AM /PM Taking Meloxicam 15 MG Tablet 1 tablet Orally Once a day Taking Simvastatin 40 MG Tablet as directed Orally Once a day Taking Thyroid Taking Tylenol Not-Taking/PRNAtenolol 25 MG Tablet 1 tablet Orally Once a day Tylenol Medication List reviewed and reconciled with the patientNot-Taking/PRN Atenolol 25 MG Tablet 1 tablet Orally Once a day Not-Taking/PRN Tylenol Medication List reviewed and reconciled with the patient * Allergies:?Ambien: loopy/ ou t of it - Side Effectsyes[Allergies Verified] Objective: * Vitals:?Ht: 5 ft 9 in, Wt:21 0, BMI: 31.01, Shoe size:9, BS:not taken, Wt-k.25 kg. * ???Past Orders: ???Lab:HEMOGLOBIN A1C (GLYCO HEMOGLOBIN) (Order Date - 11/18/2022) (Collection Date & Time - 08/18/2022) ? Value Reference Range ?HEMOGLOBIN A1C % (HH) 6.0 * Examination: ???Vascular: ?DP PULSES(B):? 0/4, B/L.?PT PULSES(B):? 1/4, B/L.?CAPILLARY FILL TIME:?delayed, all digits, B/L.?TROPHIC CONDITION-TEXTURE/ELASTICITY/TURGOR/HAIR GROWTH(B):?decreased, with sparse to absent hair growth, B/L.?TEMPERTURE GRADIENT(C):? decreased, cool to cool, proximal to distal, B/L.?PIGMENTATION:? rubrous, B/L.?EDEMA(C):? 1/4, non-pitting, without aching pain, B/L, Leg(s), Ankle(s), Feet.?CLAUDICATION(C):?denies, B/L.?REST PAIN:?denies, B/L.?Nails: ?NAILS are:?Elongated, overgrown, dystrophic, lytic, greater than 3mm thick, discolored and friable with crumbly malodorous subungual debris, with pain on palpation, TA, T1, T3, T4, T5, T6, T8, T9.?Ingrown Nail: ?INSPECTION:?Reveals nail incurvation, pain on palpation, groove hypertrophy, Lateral nail border, TA, T5.?Dermatologic: ?SKIN FINDINGS:?Skin exam reveals Keratotic lesion(s) located at, Medial, IPJ, T5 , Plantar, Heel(s), B/L , Skin shows sign(s) of, dryness, scaling, in a stocking fashion, no fissure(s) present, B/L.? Assessment: * Assessment: 1.?Type 2 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 gangrene - E11.51 (Primary)???Notes :Q7(A), Q8(2B), Q9(1B,2C)???2.?Tinea unguium - B35.1???3.?Pain in right toe(s) - M79.674???4.?Pain in left toe(s) - M79.675???5.?Ingrown nail - L60.0???Specify :Lateral nail border, TA, T5???6.?Xerosis of skin - L85.3???Specify :Acute problem, Uncomplicated (3),Rx Management (4)??? Plan: * Treatment: 2.?Tinea unguium?Procedure: 37729-SLXWGWF NAIL, 6 OR MORE 3.?Ingrown nail?Procedure: 34299-Szwpaqft Plate ?Procedure: 98422-Eepvmmjz Plate Each Additional 4.?Xerosis of skin? Start Ammonium Lactate Cream, 12 %, 1 application, Externally to affected areas of dry skin to feet except for between the toes, Twice a day, 30 days, 140, Refills 2.?? * Procedures:?Debride Nail 6-10:?Nail debridement?Performance of this nail treatment by a nonprofessional would put this patients foot and overall health at risk. Therefore, debridement to affected nail(s), as described in exam, was performed extensively to reduce/remove overall nail length, girth, thickness, subungual debris, and necrotic tissue, by manual and/or electrical means through the use of a nail nipper and/or dremel-type lens grinder, to a more viable healthy nail plate or bed tissue 6-10 nails in total. Silver nitrate was used for any petechial bleeding as necessary. Definitive antifungal treatment options, both pharmaceutical and surgical, have been reviewed and discussed with the patient. The patient solely prefers the use of intermittent/as needed professional debridement services for their nail condition and understands the need for additional periodic treatments to maintain effectiveness in symptomatic relief - 79986.?Keratoma Treatment:?Parring or Cutting of Benign Hyperkeratotic Lesion(s)?(-56) 2-4 Lesions - The Benign hyperkeratotic lesions, ( 3) in total, locations as stated and described in exam, were pared, and/or cut utilizing a sterile 15 blade, tissue nippers, and/or power dremel instrumentation - 93496, Q8.?Nail Avulsion:?Location?Lateral nail border, TA, T5.?Anesthesia?was accomplished TOPICALLY with Lidocaine Hydrochloride Jelly 2 percent, to each toe.?Procedure?A fine sterile elevator was placed between the eponychium, nail fold, and nail plate to separate the the structures. A sterile nail splitter, and/or sterile 316 blade, was then used to longitudinally section the nail along its entire length through the eponychium to the area under the nail fold. The offending portion of each nail was from the nail bed with a rolling action and then removed with a hemostat. No underlying bone was identified. There was minimal bleeding as hemostasis was achieved through use of either a digital tournaquet or the aforementioned local with epinephrine. A bacitracin sterile dressing was applied. Local wound aftercare instructions were discussed and dispensed. The patient was informed of both conservative and future surgical procedures to prevent recurrence (33553/32), DIABETES: Pt was advised as to the risk of delayed or nonhealing due to diabetes. Pt is to call the office with any questions, concerns, or complications.? * Procedure Codes:?63577 DEBRI DE NAIL, 6 OR MORE, Modifiers: XS 30838 Avulsion Plate, Modifiers: XS , CY12345 Avulsion Plate Each Additional, Modifiers: XS , [id number] TRIM SKIN LESIONS, 2 TO 4, Modifiers: XS , Q8 * Preventive Medicine:? ??Counseling:?Discussion:?-13: Office or other outpatient visit for the evaluation and management of an established patient, which required a medically appropriate history and/or examination and LOW level of DECISION MAKING for: 1 STABLE ACUTE UNCOMPLICATED PROBLEM, 2 OR MORE MINOR PROBLEMS, OR 1 STABLE CHRONIC PROBLEM, THAT POSE(S) A LOW RISK FOR MORBIDITY/MORTALITY. The visit on the day of the encounter encompassed interpreting the data and educating the patient as to the nature of their condition, treatment options available according to their individual PMH, meds, allergies, and overall health/living conditions, as well as any potential risks or complications that may occur from a failure to adhere to, and participate in, the recommended course of therapy. The discussion included a complete verbal, and/or written explanation of the examination results, any x-rays taken, the proposed diagnosis, and outline of the treatment plan. A schedule for future care needs was also explained. The patient verbalized an understanding of the instructions at this time and agreed to be an active participant in their treatment. If the patient should think of any questions or concerns after the visit, I have encouraged the patient to call the office.?Xerosis:?The patient was counseled on the diagnosis, potential etiologies, and treatment options for their skin condition. We discussed the risks and benefits of each option from performing no treatment, to utilizing OTC topical skin creams/ointments, to utilizing prescription topical creams/ointments, to utilizing customized compounded topical medications and use of nocturnal occlusion with any/all previously detailed therapies. We discussed the advantages and disadvantages of each possible treatment and importance for adherence to all the recommended therapies for optimum success and avoid potential complications such as open sore/infection/possible hospitalization. We discussed the potential effectiveness of each topical preparation as well as each ones possible side effects and/or patient medication interactions. Patient questions re: use, dosage, successful outcomes, and application consistency were reviewed and the patient verbalized that all answers were clearly understood. The patient has decided to apply Rx skin creams to their feet save the interspaces while paying special attention to the heels. Such was sent to their pharmacy at the time of visit.? * Follow Up:?prn * Images: * Sign off status: Completed true * Provider:?Praveen Shearer DPM Date:?2023 Generated for Kianna mccurdy/Jani/Chip on:?09/23/2024 09:12 AM EST History and Physical Notes * HPI (History of Present Illness) Category Sub-Category Detail Notes Category Not es Skin problems Nature: dryness , scaling Location: B/L Duration: several days Course: worse At Risk footcare Pt States Last PCP Visit: Date: 4 [facility] [place] Patient accompanied by, Daughter, Jasmine Examination Category Sub-Category Detail Notes Category Not es Ingrown Nail INSPECTION: Reveals nail inc urvation, pain on palpation, groove hypertrophy, Lateral nail border, TA, T5 Dermatologic SKIN FINDINGS: Skin exam reveal s Keratotic lesion(s) located at, Medial, IPJ, T5 , Plantar, Heel(s), B/L , Skin shows sign(s) of, dryness, scaling, in a stocking fashion, no fissure(s) present, B/L Vascular DP PULSES (B): 0/4, B/L PT PULSES (B): 1/4, B/L CAPILLARY FILL TIME: delayed, all digits , B/L TEMPERTURE GRADIENT (C): decreased, cool to cool, proximal to distal, B/L TROPHIC CONDITION-TEXTURE/ELASTICITY/TURGOR/HAIR GROWTH (B): decreased, with sparse to absent hair gr owth, B/L EDEMA (C): 1/4, non-pitting, wi thout aching pain, B/L, Leg(s), Ankle(s), Feet CLAUDICATION (C): denies, B/L REST PAIN: denies, B/L PIGMENTATION: rubrous, B/L Nails NAILS are: Elongated, overg rown, dystrophic, lytic, greater than 3mm thick, discolored and friable with crumbly malodorous subungual debris, with pain on palpation, TA, T1, T3, T4, T5, T6, T8, T9
== END 2024-09-23 09:09 | disposition home or self-care (01) ==
PROVIDERS: PCP Physician Assistant; Visit Provider Physician Assistant
DX: M17.12 Unilateral primary osteoarthritis, left knee (principal)
CPT/HCPCS: 20610; 99213

== ENCOUNTER → 2024-09-23 08:46 | Outpatient (BNVA) | payer MEDICARE, SELFPAY | PROVIDERS: PCP Physician Assistant; Visit Provider Physician Assistant | DX: M17.12 Unilateral primary osteoarthritis, left knee (principal) | CPT/HCPCS: 20610; 99212; J1010; J2003 ==

== ENCOUNTER 2024-12-12 17:32 | Emergency (ER) | payer MEDICARE, SELFPAY ==
--- NOTE | ~2024-12-12 | CT_ITS ---
CLINICAL HISTORY: AMS, initially unresponsive CT head without contrast Comparison: None Findings: No intracranial mass, midline shift, hydrocephalus, or acute hemorrhage. Moderate chronic ischemic white matter disease with volume loss. No acute process in sinuses or mastoids. No acute bony abnormality. Impression: No acute intracranial process This document has been electronically signed by: Gurwinder Gonzalez MD on 12/12/2024 20:57:38
[2024-12-12 17:37] VITALS: BP 98/61; PULSE 78; O2SAT 97
[2024-12-12 17:57] VITALS: BP 104/47; PULSE 78; RESP 16; TEMP 36.5; O2SAT 97; BMI 33.3
--- NOTE | 2024-12-12 19:10 | ECG_ITS ---
Test Reason : SYNCOPE Blood Pressure : */* mmHG Vent. Rate : 78 BPM Atrial Rate : * BPM P-R Int : * ms QRS Dur : 70 ms QT Int : 390 ms P-R-T Axes : * 1 13 degrees QTcB Int : 444 ms Atrial fibrillation Abnormal ECG When compared with ECG of 16-Jul-2020 18:37, Atrial fibrillation has replaced Sinus rhythm Referred By: Olivia Plasencia Electronically Signed By: TOBY ANGULO MD
--- NOTE | 2024-12-12 19:16 | ED_ITS ---
HPI - Syncope General Chief Complaint: Syncope Stated Complaint: Syncopal episode Time Seen by Provider: 12/12/24 18:58 Source: family and EMS Mode of arrival: EMS Limitations: other (Dementia) History of Present Illness ED Provider: Dr. Olivia Plasencia HPI narrative: Patient comes to the emergency room complaining of a syncopal episode. According to the patient's family who is at bedside, the patient has caretakers pretty much the whole time with her. However, today after dinner, patient was sitting down and suddenly became unresponsive while she was sitting in a chair. Patient did not fall out of the chair, did not hit her head or lost consciousness. Patient did not report any chest pain or shortness of breath prior to this event. When EMS arrived, patient's blood pressure was in the 70s. Patient was started on fluids and when the patient arrived to the ED, patient's blood pressure was in the 100s. At this time, patient states that she feels well, does not have any chest pain or shortness of breath. No dizziness. The patient's daughter states that they have noted that the patient's urine is foul smelling. Patient's straight cath herself multiple times a day. Related Data Home Medications ?Medication ?Instructions ?Recorded ?Confirmed cholecalciferol (vitamin D3) 25 25 mcg PO DAILY 08/23/21 09/23/24 mcg (1,000 unit) capsule [id number] antigen 2 of 2 120 mcg IM IM 02/05/24 09/23/24 susp (Arexvy Antigen Component) furosemide 20 mg tablet (Lasix) 20 mg PO DAILY 02/05/24 09/23/24 Previous Rx's ?Medication ?Instructions ?Recorded omeprazole 20 mg capsule,delayed 20 mg PO DAILY 90 days #90 caps 02/15/22 release acetaminophen 650 mg 650 mg PO Q12H 30 days #60 tabs 02/22/24 tablet,extended release atenolol 25 mg tablet 25 mg PO DAILY #90 tabs 05/10/24 tizanidine 2 mg tablet 2 mg PO BEDTIME for muscle spasm 05/27/24 90 days #90 tabs losartan 50 mg-hydrochlorothiazide 1 tab PO DAILY #90 tabs 05/29/24 12.5 mg tablet levothyroxine 75 mcg tablet 75 mcg PO QAM #90 tabs 08/04/24 metformin 500 mg tablet 500 mg PO BID 90 days #180 tabs 08/04/24 simvastatin 40 mg tablet 40 mg PO BEDTIME #90 tabs 08/04/24 nystatin 100,000 unit/gram topical 1 appl topical TID #60 grams 09/19/24 powder (Nystop) celecoxib 200 mg capsule 200 mg PO BID #60 caps 10/30/24 ferrous sulfate 325 mg (65 mg 325 mg PO DAILY #90 tabs 11/13/24 iron) tablet apixaban 2.5 mg tablet (Eliquis) 2.5 mg PO BID #60 tabs 12/13/24 metoprolol succinate 25 mg capsule 12.5 mg (1/2 x 25 mg) PO DAILY #30 12/13/24 sprinkle, ext. release 24 hr tabs Allergies Allergy/AdvReac Type Severity Reaction Status Date / Time gabapentin AdvReac Intermediate Confusion Verified 12/12/24 18:01 zolpidem [Zolpidem] AdvReac Intermediate CONFUSION Verified 12/12/24 18:01 Review of Systems 2 Review of Systems: Constitutional : No Weight loss, No Fever, No Chills, No Night Sweats, No Fatigue, No Malaise ENT/Mouth : No Hearing loss, No Ear Pain, No Nasal Congestion, No Sinus Pain, No Hoarseness, No sore throat, No Rhinorrhea, No Swallowing Difficulty Eyes: No Eye Pain, No Swelling, No Redness, No Foreign Body, No Discharge, No Vision Changes Cardiovascular : No Chest Pain, No SOB, No Dyspnea on Exertion, No Orthopnea, No Edema, No Palpitations Respiratory : No Cough, No Sputum, No Wheezing, No Smoke Exposure, No Dyspnea Gastrointestinal : No Nausea, No Vomiting, No Diarrhea, No Constipation, No abdominal Pain, No Hematochezia, No Melena Genitourinary : no irregular bleeding, No Dysuria, No Urinary Frequency, No Hematuria, No Urinary Incontinence, No Urgency, No Flank Pain, No Urinary Flow Changes, No Hesitancy Musculoskeletal : No joint pain, No Myalgias, No Joint Swelling Skin : No Skin Lesions, No rash Neuro : No Weakness, No Numbness, No Paresthesias, complaining of wants syncopal episode lasting a few minutes, No Dizziness, No Headache Psych : No Anxiety/Panic, No Depression, No SI/HI/AH/VH, No Social Issues, Heme/Lymph: No Bruising, No Bleeding,No Lymphadenopathy Endocrine : No Polyuria, No Polydipsia, No Temperature Intolerance [facility] Past Medical History Medical History Post herpetic neuralgia Hypothyroid High cholesterol HTN (hypertension) Diabetes Surgical History History of lumbar surgery History of total right knee replacement History of bladder surgery Family History Family History Father Throat cancer Mother Diabetes Son Substance use disorder Son Substance use disorder Social History Social History Housing: House Alcohol intake: never Patient Tobacco Use Status: Former Tobacco user Tobacco use type: Cigarette Smoked in Last 30 Days: No e-Cigarette/Vaping Use: Never Used Second Hand Smoke Exposure: No Use of substances other than those prescribed or required for medical reasons: No Advance Directives: No Advance Directives Information Provided: Yes service: No Current occupational status: retired Cognitive needs: Yes (walker) Hearing needs: No Vision needs: Yes (readig glasses) Physical Exam 2 Vital Signs: Vital Signs: Last Vital Signs Temp 97.7 F 12/12/24 17:57 Pulse 70 12/12/24 22:17 Resp 18 12/12/24 22:17 BP 147/61 H 12/12/24 22:17 Pulse Ox 96 12/12/24 22:17 O2 Del Method Room Air 12/12/24 22:17 BMI result Body Mass Index 33.3 Const: Other: Appearance: Alert. Oriented X2. No acute distress. Eyes: Pupils equal, round and reactive to light. ENT: Pharynx normal. Neck: Normal inspection. Neck supple. No lymph nodes noted. No crepitus CVS: Normal heart rate and rhythm. Pulses normal. Normal S1 and S2 Respiratory: No respiratory distress. Breath sounds normal. No Wheezing. No rales Abdomen: Soft and nontender. No rigidity. No distention. Skin: Skin warm and dry. Normal skin color. Normal skin turgor. Extremities: No lower extremity edema. No Lacerations. No Rash Neuro: Oriented X 2. No motor deficit. No sensory deficit. Moving all extremities. No slurred speech. CN 2 through 12 grossly intact Psych: calm, cooperative, normal affect Course Course Course Narrative: All of patient's labs and imaging pending Patient was ambulated with her walker that she uses at baseline, patient did well Medications Administered Discontinued Medications Generic Name Dose Route Start Last Admin Trade Name Silvano PRN Reason Stop Dose Admin Sodium Chloride 1,000 mls @ 999 mls/hr 12/12/24 21:30 12/12/24 22:50 Ns IVCONT 12/12/24 22:30 Infused .Q1H1M ONE Infusion Medical Decision Making Medical Decision Making MDM Narrative: EKG: Atrial fibrillation heart rate 78, no ST segment depression or elevation, no T-wave inversion, QTC 444 Patient has never had atrial fibrillation to patient's family's knowledge. Patient's CHADS2 Vasc score is 5 I discussed with the patient's family the risks versus benefits of being on a blood thinner. Patient's family will like her to be started on blood thinners, according to the family patient is most of the time with someone who helps her to walk around the house. Patient is usually pretty steady walking. Discussed with the patient's family that if she has any head strikes, falls, or MVC, she needs to come to the emergency room to be evaluated. Patient will be given the 1st dose of Eliquis in the emergency room per family's request. Also will be started on a small dose of metoprolol. Patient's heart rate has been rate controlled here in the ED. I discussed with the patient's family that I strongly suggest admitting the patient for further workup, especially with a syncopal episode and new a fib. However, patient's family really would like to take the patient home and do the rest of the workup in an outpatient basis. Family understands the risk of taking the patient home. Given patient's creatinine function and age, we will keep the dose at 2.5 mg b.i.d. My interpretation of labs: Patient's hematology at baseline, chemistry shows a creatinine of 2.17. Last time that we have any records of the patient's creatinine was 3 years ago. Patient receiving IV fluids, we will reassess the creatinine. Patient's D-dimer is 398. However, patient is not tachycardic, no shortness of breath, not hypotensive. The age adjusted D-dimer for the patient is 870. Patient has no symptoms of pulmonary embolism, pulmonary embolism is not suspected. Patient was ambulated around the emergency room with her walker, patient did well walking. Patient received and a 0.5 L of IV fluids, 1st 0.5 L started by EMS and 1 L by us. Patient's creatinine improved to 1.74. Ideally, patient should have 1 more L of IV fluids. No signs of fluid overload. Ideally, after creatinine improves, we should be doing a CTA to rule out pulmonary embolism, given the new onset of AFib and syncope. However, patient's family called and is requesting to have the patient ready for discharge by the time they come. PE could not be ruled out. Per patient's family, they would prefer not to have the patient admitted to the hospital, they prefer to take her home. Here in the emergency room, patient has not had any syncopal episodes, no arrhythmias, patient has been walking with her walker doing well. As mentioned above, patient was given 2.5 mg of Eliquis here in the emergency room. Urinalysis negative for UTI CT scan of the head does not show any acute abnormality. Patient's vitals stable, blood pressure 147/61, heart rate 70, respirations 18, oxygen saturation 96% on room air and did not have any oxygen saturations ambulating. Differential Diagnosis Differential Diagnoses: The differential diagnosis associated with the presentation includes (Orthostatic hypotension, seizure, syncope, atrial fibrillation, atrial flutter) Admission/Observation Consideration of admission/observation: Escalation of care including admission/observation considered (I strongly suggested to the patient the family to have the patient admitted. However, they prefer to take the patient home, patient agrees with plan) Lab Data MDM Lab Attestation statement: I reviewed the patient's lab results. 12/12/24 19:45 12/12/24 23:15 Labs: Lab Results 12/12/24 12/12/24 12/12/24 Range/Units 19:45 21:39 23:15 WBC 6.4 (4.8-10.8) X10*3/uL RBC 3.49 L (4.20-5.50) X10*6/uL Hgb 10.6 L (12.0-16.0) g/dl Hct 33.3 L (37.0-47.0) % MCV 95.4 (80.0-98.0) fL MCH 30.4 (27.0-33.0) pg MCHC 31.8 (31.0-35.0) g/dl RDW 13.4 (11.0-16.0) % Plt Count 174 D (160-400) X10*3/uL MPV 10.6 (9.4-12.3) fL Immature Gran % (Auto) 0.3 (0.0-0.4) % Neut % (Auto) 79.7 H (45-73) % Lymph % (Auto) 12.0 L (20-40) % [place] % (Auto) 6.1 (2-11) % Eos % (Auto) 1.4 (0-4) % Baso % (Auto) 0.5 (0-2) % Lymph # (Auto) 0.8 L (1.2-4.9) X10*3/uL [place] # (Auto) 0.4 (0.1-1.2) X10*3/uL Eos # (Auto) 0.1 (0.0-0.4) X10*3/uL Baso # (Auto) 0.0 (0.0-0.2) X10*3/uL Abs Immat Gran (auto) 0.02 (0.00-0.03) X10*3/uL Absolute Neuts (auto) 5.1 (2.0-8.3) x10*3/uL Absolute Nucleated RBC 0.000 (0.0-0.012) X10*3/uL Nucleated RBC % (auto) 0.0 (0.0-0.2) /100WBC D-Dimer High Sensitivty 398 NG/ML Sodium 141 143 (135-145) mmol/L Potassium 4.8 4.5 (3.3-5.1) mmol/L Chloride 116 H 117 H (96-108) mmol/L Carbon Dioxide 19 L 19 L (22-29) mmol/L Anion Gap 11 L 12 (12-20) BUN 40 H 41 H (9-16) mg/dL Creatinine 2.17 H 1.74 H (0.5-1.4) mg/dL Estim Creat Clear Calc 21.0 26.2 Estimated GFR 21 28 Random Glucose 203 H 142 H (60-115) mg/dL Calcium 9.3 D 9.0 (8.4-10.2) mg/dL Magnesium 1.8 (1.6-2.6) mg/dL Total Bilirubin 0.3 0.3 (0.0-1.0) mg/dL Direct Bilirubin 0.1 (0.0-0.5) mg/dL AST 15 13 (5-31) U/L ALT < 6 < 6 (0-31) U/L Alkaline Phosphatase 74 66 (39-117) U/L Troponin I High Sens 5.2 (<3.5-17.0) ng/L Total Protein 6.1 L 5.7 L (6.5-8.0) g/dL Albumin 3.5 3.3 L (3.5-5.0) g/dL Urine Color Yellow Urine Appearance Clear Urine pH 5.0 (5.0-9.0) Ur Specific Dexter 1.010 (1.005-1.025) Urine Protein Negative (Neg-Trace) mg/dL Urine Glucose (UA) Negative (Negative) mg/dL Urine Ketones Negative (Negative) mg/dL Urine Blood Negative (Negative) Urine Nitrite Negative (Negative) Ur Leukocyte Esterase Negative (Negative) COVID-19 (MACK) Negative (Negative) COVID-19 Clin Com See Note Influenza Type A (JOCELYNE) Negative (Negative) Influenza Type B (JOCELYNE) Negative (Negative) Influenza A & B Note See Note Independent Interpretation I performed an independent interpretation of an: EKG and CT Scan Radiology Impression Discussion of test interpretation with radiology: I have reviewed the radiologist's reading. Radiologist Impression: No intracranial mass, midline shift, hydrocephalus, or acute hemorrhage. Moderate chronic ischemic white matter disease with volume loss. No acute process in sinuses or mastoids. No acute bony abnormality. Impression: No acute intracranial process Independent Historian Clinical information obtained from an independent historian. History obtained from or confirmed by: Other (Patient's daughter) Critical Care Time Critical Care Time Critical Care Time: Yes Total Critical Care Time: 60 Attestation: Please follow-up with your primary care physician tomorrow. If you have any worsening or new symptoms, please return to the emergency room or call 911 Discharge Plan Discharge Clinical Impression: New onset atrial fibrillation, Syncope, AYE (acute kidney injury) Patient Disposition: Home, Self-Care Instructions: A-fib (Atrial Fibrillation) (ED), Acute Kidney Injury (DC), Syncope (ED) Additional Instructions: Mrs. Resendiz has new onset atrial fibrillation which may cause blood clots and cause passing out, blood clots to the lungs, extremities, stroke. Ideally, patient should be admitted for further work up. A blood clott (pulmonary embolism) could not be ruled out, which may be a fatal condition. Please make sure that you follow-up with your primary care physician and we will give you the phone number for Cardiology. If the patient ever falls, has any kind of hit injury, or motor vehicle accident, she needs to be evaluated in the emergency room since she will be on blood thinners. Please follow-up with your primary care physician tomorrow. If you have any worsening or new symptoms, please return to the emergency room or call 911 Prescriptions: New metoprolol succinate 25 mg capsule,adryle,ER 24hr 12.5 mg PO DAILY Qty: 30 0RF Eliquis 2.5 mg tablet 2.5 mg PO BID Qty: 60 0RF No Action acetaminophen 650 mg tablet extended release 650 mg PO Q12H 30 Days Qty: 60 6RF atenolol 25 mg tablet 25 mg PO DAILY Qty: 90 2RF tizanidine 2 mg tablet 2 mg PO BEDTIME 90 Days Qty: 90 1RF losartan-hydrochlorothiazide 50-12.5 mg tablet 1 tab PO DAILY Qty: 90 2RF metformin 500 mg tablet 500 mg PO BID 90 Days Qty: 180 1RF levothyroxine 75 mcg tablet 75 mcg PO QAM Qty: 90 1RF simvastatin 40 mg tablet 40 mg PO BEDTIME Qty: 90 1RF nystatin [Nystop] 100,000 unit/gram powder 1 appl topical TID Qty: 60 2RF celecoxib 200 mg capsule 200 mg PO BID Qty: 60 3RF ferrous sulfate 325 mg (65 mg iron) tablet 325 mg PO DAILY Qty: 90 2RF cholecalciferol (vitamin D3) 25 mcg (1,000 unit) capsule 25 mcg PO DAILY omeprazole 20 mg capsule,delayed release(DR/EC) 20 mg PO DAILY 90 Days Qty: 90 1RF furosemide [Lasix] 20 mg tablet 20 mg PO DAILY Arexvy Antigen Component 120 mcg suspension for reconstitution IM Referrals: Sravan Shafer MD [Physician] - 12/16/24 Print Language: Syriac
[2024-12-12 19:51] LABS: MANUAL DIFF FLAG NO
[2024-12-12 19:53] LABS: Basophils Percent Auto 0.5 % (0-2); Eosinophils Absolute Auto 0.1 X10*3/uL (0.0-0.4); Eosinophils Percent Auto 1.4 % (0-4); Hematocrit 33.3 % (37.0-47.0); Hemoglobin 10.6 g/dl (12.0-16.0); Imm Gran Abs Auto 0.02 X10*3/uL (0.00-0.03); Imm Gran Pct Auto 0.3 % (0.0-0.4); Lymphocytes Absolute Auto 0.8 X10*3/uL (1.2-4.9); Mean Corpuscular HGB Conc 31.8 g/dl (31.0-35.0); Mean Corpuscular Hemoglobin 30.4 pg (27.0-33.0); Mean Corpuscular Volume 95.4 fL (80.0-98.0); Mean Platelet Volume 10.6 fL (9.4-12.3); Monocytes Absolute Auto 0.4 X10*3/uL (0.1-1.2); Monocytes Percent Auto 6.1 % (2-11); Neutrophils Absolute Auto 5.1 x10*3/uL (2.0-8.3); Neutrophils Percent Auto 79.7 % (45-73); Platelet Count 174 X10*3/uL (160-400); Red Blood Count 3.49 X10*6/uL (4.20-5.50); Red Cell Distribution Width 13.4 % (11.0-16.0); White Blood Count 6.4 X10*3/uL (4.8-10.8)
[2024-12-12 20:02] LABS: D Dimer High Sensitivity 398 NG/ML
[2024-12-12 20:14] LABS: COVID-19 Test Negative (Negative); IDNOW Serial# 55D5AD1C; IDNOW Serial# 58CA691E; Influenza A Negative (Negative); Influenza B2 Negative (Negative)
[2024-12-12 20:18] LABS: Alanine Aminotransferase < 6 U/L (0-31); Albumin Level 3.5 g/dL (3.5-5.0); Alkaline Phosphatase 74 U/L (39-117); Anion Gap 11 (12-20); Aspartate Amino Transferase 15 U/L (5-31); Bilirubin Direct 0.1 mg/dL (0.0-0.5); Bilirubin Total 0.3 mg/dL (0.0-1.0); Blood Urea Nitrogen 40 mg/dL (9-16); Calcium 9.3 mg/dL (8.4-10.2); Carbon Dioxide 19 mmol/L (22-29); Chloride 116 mmol/L (96-108); Estimated Glomerular Filt Rate 21; Glucose Random 203 mg/dL (60-115); Magnesium 1.8 mg/dL (1.6-2.6); Potassium 4.8 mmol/L (3.3-5.1); Sodium 141 mmol/L (135-145); Total Protein 6.1 g/dL (6.5-8.0)
[2024-12-12 20:21] LABS: Troponin-I High Sensitivity 5.2 ng/L (<3.5-17.0)
[2024-12-12] MEDS: 0.9 % Sodium Chloride 1,000 ML 999 ML IVCONT (21:36)
--- NOTE | 2024-12-12 21:45 | PC.NURSE ---
Pt straight cathed for clean catch urine. Pt catheterizes self at home x 5 years due to urinary retention. Pt tolerated procedure well, 900ml drained from bladder. Urine sent for processing, awaiting results. Plan for IVF and repeat chem upon completion. Pt and family aware of plan of care.
[2024-12-12 21:53] LABS: Appearance Urine Clear; Color Urine Yellow; Glucose Urine UA Negative (Negative); Leukocyte Esterase Urine Negative (Negative); Nitrite Urine Negative (Negative); Urine Blood Negative (Negative); Urine Ketones Negative (Negative); Urine Protein Negative (Neg-Trace)
[2024-12-12 22:17] VITALS: BP 147/61; PULSE 70; RESP 18; O2SAT 96
--- NOTE | 2024-12-12 22:58 | PC.NURSE ---
Fluids completed awaiting chem redraw and MD reeval. Pt resting comfortably on stretcher, skin pwd respirations even unlabored. VSS. Offers no complaints. Will continue to monitor.
[2024-12-12 23:35] LABS: Alanine Aminotransferase < 6 U/L (0-31); Albumin Level 3.3 g/dL (3.5-5.0); Alkaline Phosphatase 66 U/L (39-117); Anion Gap 12 (12-20); Aspartate Amino Transferase 13 U/L (5-31); Bilirubin Total 0.3 mg/dL (0.0-1.0); Blood Urea Nitrogen 41 mg/dL (9-16); Carbon Dioxide 19 mmol/L (22-29); Chloride 117 mmol/L (96-108); Creatinine Clr Calc Pharmacy 26.2; Estimated Glomerular Filt Rate 28; Glucose Random 142 mg/dL (60-115); Potassium 4.5 mmol/L (3.3-5.1); Sodium 143 mmol/L (135-145); Total Protein 5.7 g/dL (6.5-8.0)
[2024-12-13 01:24] VITALS: BP 132/58; PULSE 66; RESP 16; TEMP 36.7; O2SAT 98
[2024-12-13 01:28] VITALS: BP 132/58; PULSE 69; RESP 15; TEMP 36.7; O2SAT 96
--- NOTE | 2024-12-13 01:35 | PC.NURSE ---
MD Plasencia to bedside for reeval with family. Family wants to take pt home, plan for dc home with close PCP follow up.
[2024-12-13] MEDS: Apixaban 2.5 MG TABLET PO (02:45)
[2024-12-13] MEDS: Metoprolol Succinate ER 12.5 MG HALFTAB.ER.24H PO (02:45)
[2024-12-13 02:58] VITALS: BP 132/58; PULSE 69; RESP 15; TEMP 36.7; O2SAT 96
== END 2024-12-13 02:58 | disposition home or self-care (01) ==
PROVIDERS: Emergency Provider Emergency Medicine; PCP Physician Assistant
DX: I48.91 Unspecified atrial fibrillation (principal); R55 Syncope and collapse; N17.9 Acute kidney failure, unspecified; E11.9 Type 2 diabetes mellitus without complications; I10 Essential (primary) hypertension; E78.5 Hyperlipidemia, unspecified; E03.9 Hypothyroidism, unspecified; Z03.818 Encounter for observation for suspected exposure to other biological agents ruled out; Z87.891 Personal history of nicotine dependence; Z79.84 Long term (current) use of oral hypoglycemic drugs; Z79.02 Long term (current) use of antithrombotics/antiplatelets; Z79.899 Other long term (current) drug therapy
CPT/HCPCS: 36415; 51701; 70450; 80048; 80053; 80076; 81003; 83735; 84484; 85025; 85379; 87502; 87635; 93005; 96360; 99284; 99285

== ENCOUNTER → 2024-12-12 19:10 | Outpatient (BNV) | payer MEDICARE, SELFPAY | PROVIDERS: Emergency Provider Emergency Medicine; PCP Physician Assistant; Visit Provider Internal Medicine Cardiovascular Disease | DX: I48.91 Unspecified atrial fibrillation (principal) | CPT/HCPCS: 93010 ==

== ENCOUNTER → 2024-12-12 19:22 | Outpatient (BNV) | payer MEDICARE, SELFPAY | PROVIDERS: Emergency Provider Emergency Medicine; PCP Physician Assistant; Visit Provider Radiology Diagnostic Radiology | DX: I67.82 Cerebral ischemia (principal) | CPT/HCPCS: 70450 ==